=== PATIENT | male | born 1945 | race Caucasian/White ===

== ENCOUNTER 2019-01-08 08:22 | Emergency (ER) | payer MEDICARE ==
[2019-01-08 08:36] LABS: Glucose,Whole Blood 59 mg/dL (75-99)
--- NOTE | 2019-01-08 08:42 | ED ---
General Adult HPI - General Chief complaint: Weakness Stated complaint: sweating, tired Time Seen by Provider: 01/08/19 08:28 Source: patient Mode of arrival: wheelchair Limitations: no limitations - History of Present Illness Initial comments: Dictation was produced using [employer] dictation software. please excuse any grammatical, word or spelling errors. Chief Complaint: 73-year-old male with insulin-dependent diabetes, cardiac disease, dyslipidemia presents with diaphoresis and weakness. History of Present Illness: Patient is 73-year-old male past medical history of insulin-dependent diabetes presents with acute onset generalized weakness, diaphoresis. Patient takes 20 units of NovoLog in the morning and 40 units of long-acting insulin at night. Patient states he went to breakfast. Patient does not usually eat carbohydrates. Today he was at breakfast with his daughter and he had some breakfast potatoes. During his meal patient became clammy, diaphoretic and weak. Patient states that he has history of heart attack and was sweaty during that time. He is concerned initially of acute cardiac event. However he denies any chest pain or shortness of breath. Patient has otherwise been feeling well. He woke this morning feeling well. The ROS documented in this emergency department record has been reviewed and confirmed by me. Those systems with pertinent positive or negative responses h ave been documented in the HPI. All other systems are other negative and/or noncontributory. PHYSICAL EXAM: General Impression: Alert and oriented x3, diaphoretic, tremulous HEENT: Normocephalic atraumatic, extra-ocular movements intact, pupils equal and reactive to light bilaterally, mucous membranes moist. Cardiovascular: Heart regular rate and rhythm, S1&S2 audible, no murmurs, rubs or gallops Chest: Lungs clear to auscultation bilaterally, no rhonchi, no wheeze, no rales Abdomen: Bowel sounds present, abdomen soft, non-tender, non-distended, no organomegaly Musculoskeletal: Pulses present and equal in all extremities, no peripheral edema Motor: no focal deficits noted Neurological: CN II-XII grossly intact, no focal motor or sensory deficits noted Skin: Intact with no visualized rashes Psych: Normal affect and mood ED course: 73-year-old male presents with acute onset weakness and sweating. He is insulin-dependent diabetic. All signs upon arrival shows findings within acceptable limits. Blood glucose was checked with the level of 16. Patient given oral glucose with immediate improvement of symptoms. Laboratory evaluation was obtained. CBC unremarkable. Coag panel unremarkable. Metabolic panel is negative. Patient's blood sugar is 56. Mag is 1.9. Patient given oral glucose. Repeat blood sugar was obtained and found to be 61. Patient given IV dextrose. Sugar improved to 204. Patient's symptoms are clearly alleviated. Repeat blood sugar performed 1 hour later shows a level 170. Patient's symptoms likely secondary to insulin overdose versus poor glucose intake post insulin administration. Patient observed in emergency department. He is counseled on symptoms of hypoglycemia. Patient will be with the daughter. He does have a glucometer at home. He will check his blood sugars regularly that he will follow-up with his primary care physician for p ossible insulin regimen. EKG interpretation: Ventricular rate 75, normal sinus rhythm,. Interval 150, care is 140, QTc 493. No IA prolongation, no QTC prolongation, no ST or T-wave changes noted. No old EKG for comparison. Overall, this EKG is unremarkable - Related Data Home Medications Medication Instructions Recorded Confirmed Aspirin 325 mg PO DAILY 01/08/19 01/08/19 Atorvastatin [Lipitor] 40 mg PO HS 01/08/19 01/08/19 Carvedilol [Coreg] 25 mg PO BID 01/08/19 01/08/19 Clopidogrel [Plavix] 75 mg PO DAILY 01/08/19 01/08/19 Famotidine [Pepcid] 20 mg PO BID 01/08/19 01/08/19 Fluticasone Nasal [place] [Flonase 1 spray EA NOSTRIL BID 01/08/19 01/08/19 Nasal [place]] Furosemide [Lasix] 20 mg PO BID 01/08/19 01/08/19 Insulin Aspart [NovoLOG] See Protocol SQ AC-TID 01/08/19 01/08/19 Insulin Detemir (Levemir) [Levemir] 50 unit SQ BID 01/08/19 01/08/19 Lisinopril [Zestril] 20 mg PO DAILY 01/08/19 01/08/19 glyBURIDE [Diabeta] 5 mg PO BID 01/08/19 01/08/19 metFORMIN HCL 1,000 mg PO BID 01/08/19 01/08/19 Allergies Allergy/AdvReac Type Severity Reaction Status Date / Time No Known Allergies Allergy Verified 01/08/19 08:52 Review of Systems ROS Statement: Those systems with pertinent positive or pertinent negative responses have been documented in the HPI. ROS Other: All systems not noted in ROS Statement are negative. Past Medical History Past Medical History: Coronary Artery Disease (CAD), Chest Pain / Angina, Diabetes Mellitus, Hyperlipidemia, Hypertension, Myocardial Infarction ([place]) History of Any Multi-Drug Resistant Organisms: None Reported Past Surgical History: Coronary Bypass/CABG, Heart Catheterization With Stent Past Psychological History: No Psychological Hx Reported Smoking Status: Former smoker Past Alcohol Use History: Occasional Past Drug Use History: None Reported General Exam Limitations: no limitations Course Vital Signs 01/08/19 08:24 Temperature 98.0 F Pulse Rate 69 Respiratory 18 Rate Blood Pressure 168/76 O2 Sat by Pulse 96 Oximetry Medical Decision Making - Lab Data Result diagrams: 01/08/19 08:38 01/08/19 08:38 Lab Results 01/08/19 01/08/19 01/08/19 Range/Units 08:33 08:38 08:38 WBC 9.8 (3.8-10.6) k/uL RBC 5.20 (4.30-5.90) m/uL Hgb 14.0 (13.0-17.5) gm/dL Hct 47.2 (39.0-53.0) % MCV 90.7 (80.0-100.0) fL MCH 26.9 (25.0-35.0) pg MCHC 29.7 L (31.0-37.0) g/dL RDW 13.1 (11.5-15.5) % Plt Count 312 (150-450) k/uL Neutrophils % 53 % Lymphocytes % 30 % Monocytes % 10 % Eosinophils % 3 % Basophils % 1 % Neutrophils # 5.2 (1.3-7.7) k/uL Lymphocytes # 2.9 (1.0-4.8) k/uL Monocytes # 0.9 (0-1.0) k/uL Eosinophils # 0.3 (0-0.7) k/uL Basophils # 0.1 (0-0.2) k/uL PT (9.0-12.0) sec INR (<1.2) Sodium 144 (137-145) mmol/L Potassium 4.2 (3.5-5.1) mmol/L Chloride 105 (98-107) mmol/L Carbon Dioxide 29 (22-30) mmol/L Anion Gap 10 mmol/L BUN 28 H (9-20) mg/dL Creatinine 0.96 (0.66-1.25) mg/dL Est GFR (CKD-EPI)AfAm >90 (>60 ml/min/1.73 sqM) Est GFR (CKD-EPI)NonAf 78 (>60 ml/min/1.73 sqM) Glucose 56 L (74-99) mg/dL POC Glucose (mg/dL) 59 L (75-99) mg/dL POC Glu Armature Connector ID Kylee Sargent Calcium 10.1 (8.4-10.2) mg/dL Magnesium 1.9 (1.6-2.3) mg/dL 01/08/19 01/08/19 01/08/19 Range/Units 08:38 08:55 09:33 WBC (3.8-10.6) k/uL RBC (4.30-5.90) m/uL Hgb (13.0-17.5) gm/dL Hct (39.0-53.0) % MCV (80.0-100.0) fL MCH (25.0-35.0) pg MCHC (31.0-37.0) g/dL RDW (11.5-15.5) % Plt Count (150-450) k/uL Neutrophils % % Lymphocytes % % Monocytes % % Eosinophils % % Basophils % % Neutrophils # (1.3-7.7) k/uL Lymphocytes # (1.0-4.8) k/uL Monocytes # (0-1.0) k/uL Eosinophils # (0-0.7) k/uL Basophils # (0-0.2) k/uL PT 10.5 (9.0-12.0) sec INR 1.0 (<1.2) Sodium (137-145) mmol/L Potassium (3.5-5.1) mmol/L Chloride (98-107) mmol/L Carbon Dioxide (22-30) mmol/L Anion Gap mmol/L BUN (9-20) mg/dL Creatinine (0.66-1.25) mg/dL Est GFR (CKD-EPI)AfAm (>60 ml/min/1.73 sqM) Est GFR (CKD-EPI)NonAf (>60 ml/min/1.73 sqM) Glucose (74-99) mg/dL POC Glucose (mg/dL) 61 L 204 H (75-99) mg/dL POC Glu Armature Connector ID James Ingrid [place]italok Ingrid Calcium (8.4-10.2) mg/dL Magnesium (1.6-2.3) mg/dL 01/08/19 Range/Units 10:15 WBC (3.8-10.6) k/uL RBC (4.30-5.90) m/uL Hgb (13.0-17.5) gm/dL Hct (39.0-53.0) % MCV (80.0-100.0) fL MCH (25.0-35.0) pg MCHC (31.0-37.0) g/dL RDW (11.5-15.5) % Plt Count (150-450) k/uL Neutrophils % % Lymphocytes % % Monocytes % % Eosinophils % % Basophils % % Neutrophils # (1.3-7.7) k/uL Lymphocytes # (1.0-4.8) k/uL Monocytes # (0-1.0) k/uL Eosinophils # (0-0.7) k/uL Basophils # (0-0.2) k/uL PT (9.0-12.0) sec INR (<1.2) Sodium (137-145) mmol/L Potassium (3.5-5.1) mmol/L Chloride (98-107) mmol/L Carbon Dioxide (22-30) mmol/L Anion Gap mmol/L BUN (9-20) mg/dL Creatinine (0.66-1.25) mg/dL Est GFR (CKD-EPI)AfAm (>60 ml/min/1.73 sqM) Est GFR (CKD-EPI)NonAf (>60 ml/min/1.73 sqM) Glucose (74-99) mg/dL POC Glucose (mg/dL) 170 H (75-99) mg/dL POC Glu Armature Connector ID Whitalok Ingrid Calcium (8.4-10.2) mg/dL Magnesium (1.6-2.3) mg/dL Disposition Clinical Impression: Hypoglycemia Disposition: HOME SELF-CARE Condition: Good Instructions (If sedation given, give patient instructions): Hypoglycemia in a Person with Diabetes (ED) Is patient prescribed a controlled substance at d/c from ED?: No Referrals: Fabiano Dhillon MD [Primary Care Provider] - 1-2 days Time of Disposition: 10:32
[2019-01-08 08:53] LABS: Basophils # (A) 0.1 k/uL (0-0.2); Basophils % (A) 1 %; Eosinophils # (A) 0.3 k/uL (0-0.7); Eosinophils % (A) 3 %; HCT 47.2 % (39.0-53.0); Lymphocytes # (A) 2.9 k/uL (1.0-4.8); Lymphocytes % (A) 30 %; MCH 26.9 pg (25.0-35.0); MCHC 29.7 g/dL (31.0-37.0); MCV 90.7 fL (80.0-100.0); Mean Platelet Volume 7.5; Monocytes # (A) 0.9 k/uL (0-1.0); Monocytes % (A) 10 %; Neutrophils # (A) 5.2 k/uL (1.3-7.7); Neutrophils % (A) 53 %; Platelet Count 312 k/uL (150-450); RDW 13.1 % (11.5-15.5); WBC 9.8 k/uL (3.8-10.6)
[2019-01-08 09:00] LABS: Prothrombin Time 10.5 sec (9.0-12.0)
[2019-01-08] MEDS ORDERED: DEXTROSE 50% SYRINGE 50 ML IVP STA (09:02)
[2019-01-08 09:03] LABS: African American GFR (CKD) >90 (>60 ml/min/1.73 sqM); Anion Gap 10 mmol/L; Blood Urea Nitrogen 28 mg/dL (9-20); Calcium 10.1 mg/dL (8.4-10.2); Carbon Dioxide 29 mmol/L (22-30); Chloride 105 mmol/L (98-107); Glucose 56 mg/dL (74-99); Magnesium 1.9 mg/dL (1.6-2.3); Potassium 4.2 mmol/L (3.5-5.1); Sodium 144 mmol/L (137-145)
[2019-01-08 09:06] LABS: Glucose,Whole Blood 61 mg/dL (75-99)
[2019-01-08 09:36] LABS: Glucose,Whole Blood 204 mg/dL (75-99)
[2019-01-08 10:17] LABS: Glucose,Whole Blood 170 mg/dL (75-99)
[2019-01-08 10:40] VITALS: BP 113/82; PULSE 82; RESP 17; TEMP 97.9
== END 2019-01-08 10:40 | disposition home or self-care (01) ==
LOC: EC 08:22
DX: E11.649 Type 2 diabetes mellitus with hypoglycemia without coma (principal); I25.119 Atherosclerotic heart disease of native coronary artery with unspecified angina pectoris; E78.5 Hyperlipidemia, unspecified; I10 Essential (primary) hypertension; I25.2 Old myocardial infarction; Z87.891 Personal history of nicotine dependence; Z79.02 Long term (current) use of antithrombotics/antiplatelets; Z79.4 Long term (current) use of insulin; Z79.51 Long term (current) use of inhaled steroids; Z79.82 Long term (current) use of aspirin; Z79.899 Other long term (current) drug therapy; Z95.1 Presence of aortocoronary bypass graft; Z95.5 Presence of coronary angioplasty implant and graft
CPT/HCPCS: 36415; 80048; 83735; 85025; 85610; 93005; 96374; 99285

== ENCOUNTER 2024-04-20 05:49 | Observation (INO) | payer MEDICARE ==
--- NOTE | 2024-04-19 20:40 | HP ---
HISTORY AND PHYSICAL DATE OF SCHEDULED SURGERY: 04/20/2024. HISTORY OF PRESENT ILLNESS: Alber Kurtz is a 78-year-old gentleman seen with symptomatic left knee osteoarthritis. After treatment options were discussed, he elected to proceed with left total knee arthroplasty. Consent regarding the procedure was obtained. His primary care doctor is Dr. Dhillon. He received medical cardiac clearance by Dr. Vides. PAST MEDICAL HISTORY: Cardiovascular disease, hypertension, hyperlipidemia, [id number] diabetes. PAST SURGICAL HISTORY: Noncontributory. DAILY MEDICATIONS: 1. Aspirin. 2. Rosuvastatin. 3. Insulin. 4. Metoprolol. ALLERGIES: None. SOCIAL HISTORY: He denies tobacco use. PHYSICAL EVALUATION OF THE LEFT KNEE: His range of motion is -3 to 100 degrees. Tenderness along the medial and lateral joint lines. Crepitance along all 3 compartments. Ligaments stable. Hip rotation is without pain. His distal neurovascular exam is intact. IMAGING: Left knee radiographs revealed severe osteoarthritic changes. IMPRESSION: 1. Left knee osteoarthritis. 2. Hypertension. 3. Hyperlipidemia. 4. Insulin-dependent diabetes. PLAN: Left total knee arthroplasty. MMODL / IJN: [id number] /
[~2024-04-20 05:49] MED LIST: TRANEXAMIC 1,000 MG/100ML-NACL 1,000 MG in SALINE 1 100ML.BAG IVPB PRN
[2024-04-20 06:48] LABS: Glucose,Whole Blood 174 mg/dL (70-110)
[2024-04-20] MEDS: ACETAMINOPHEN TAB 500 MG TAB PO PRN (06:58)
[2024-04-20] MEDS: ONDANSETRON 4 MG/2 ML VIAL IVP ONE (06:58)
[2024-04-20] MEDS: MELOXICAM 7.5 MG TAB PO PRN (06:58)
[2024-04-20] MEDS: LACTATED RINGERS 1,000 ML IV SCH (06:59)
[2024-04-20] MEDS: IV FLUID CONTINUATION 1,000 ML IV ONE ×2 (07:00→09:30)
[2024-04-20 07:03] LABS: Partial Thromboplastin Time 23.6 sec (22.0-30.0)
[2024-04-20 07:09] LABS: Anisocytosis Moderate; HCT 41.9 % (39.0-53.0); HGB 13.2 gm/dL (13.0-17.5); Hypochromasia Slight; MCH 28.2 pg (25.0-35.0); MCHC 31.4 g/dL (31.0-37.0); MCV 89.6 fL (80.0-100.0); Mean Platelet Volume 8.8; Platelet Count 187 k/uL (150-450); RBC 4.68 m/uL (4.30-5.90); RDW 20.3 % (11.5-15.5); WBC 5.7 k/uL (3.8-10.6)
[2024-04-20] MEDS: MIDAZOLAM 2 MG/2 ML VIAL IV STA (07:10)
--- NOTE | 2024-04-20 07:26 | P.ANPRN ---
Procedure Note - Anesthesia - Nerve Block Performed Left Adductor Canal Infusion Time Out Performed: Yes Date of Procedure: 04/20/24 Procedure Start Time: :10 Procedure Stop Time: :16 Location of Patient: PreOp Indication: Acute Post-Operative Pain, Dx/Pain Location, Requested by Surgeon Sedation Type: Sedate with meaningful contact maintained Preparation: Sterile Prep Position: Supine Catheter: Indwelling Needle Types: Pajunk Needle Gauge: 21 Ultrasound used to visualize needle placement: Yes Ultrasound used to observe medication spread: Yes Injectate: 0.5% Ropivacaine (see comment for volume) (20cc) Blood Aspirated: No Pain Paresthesia on Injection Noted: No Resistance on Injection: Normal Image Stored and Saved: Yes Events: Uneventful and Well Tolerated
--- NOTE | 2024-04-20 07:27 | P.ANPRN ---
Procedure Note - Anesthesia - Nerve Block Performed Left Sona Single Date of Procedure: 04/20/24 Procedure Start Time: 07:17 Procedure Stop Time: :22 Location of Patient: PreOp Indication: Acute Post-Operative Pain, Dx/Pain Location, Requested by Surgeon Preparation: Sterile Prep Position: Supine Catheter: None Needle Types: Pajunk Needle Gauge: 21 Ultrasound used to visualize needle placement: Yes Ultrasound used to observe medication spread: Yes Injectate: 0.5% Ropivacaine (see comment for volume) (15cc) Blood Aspirated: No Pain Paresthesia on Injection Noted: No Resistance on Injection: Normal Image Stored and Saved: Yes Events: Uneventful and Well Tolerated
[2024-04-20] MEDS ORDERED: ROPIVACAINE 5 MG/ML 30 ML VIAL ONE (07:30)
[2024-04-20] MEDS ORDERED: PHENYLEPHRINE-0.9% NACL SYG 1,000 MCG/10 ML SYRINGE ONE (07:30)
[2024-04-20] MEDS ORDERED: TRANEXAMIC 1,000 MG/100ML-NACL PREMIX BAG ONE (07:30)
[2024-04-20] MEDS ORDERED: fentaNYL (PF) 50 MCG/ML 2 ML AMP ONE (07:30)
[2024-04-20] MEDS ORDERED: PROPOFOL 10 MG/ML 20 ML VIAL IV ONE (07:30)
[2024-04-20 07:41] LABS: Anisocytosis (M) Present; Eosinophils # (M) 0.23 k/uL (0-0.7); Monocytes # (M) 1.08 k/uL (0-1.0); Neutrophils # (M) 2.91 k/uL (1.3-7.7); Neutrophils % (M) 51 %; Nucleated Red Blood Cells 0 /100 WBC (0-0); Poikilocytosis (M) Present; Total Cells Counted 200
[2024-04-20 07:55] LABS: African American GFR (CKD) >90 (>60 ml/min/1.73 sqM); Anion Gap 7 mmol/L; Blood Urea Nitrogen 33 mg/dL (9-20); Calcium 9.1 mg/dL (8.4-10.2); Carbon Dioxide 30 mmol/L (22-30); Chloride 101 mmol/L (98-107); Glucose 155 mg/dL (74-99); Non-African American GFR(CKD) 83 (>60 ml/min/1.73 sqM); Potassium 4.2 mmol/L (3.5-5.1); Sodium 138 mmol/L (137-145)
[2024-04-20] MEDS: ceFAZolin 1,000 MG in SODIUM CHLORIDE 0.9% 1,000 ML IRRIGATION ONE (07:56)
--- NOTE | 2024-04-20 09:15 | P.OP ---
Date of Procedure: 04/20/24 Preoperative Diagnosis: Left knee osteoarthritis Postoperative Diagnosis: Left knee osteoarthritis Procedure(s) Performed: Left total knee arthroplasty Implants: 1. DePuy attune size 6 left cruciate retaining cemented femur 2. DePuy attune size 6 fixed-bearing cemented tibial baseplate 3. DePuy attune size 6 fixed-bearing cruciate retaining 6 mm polyethylene tibial insert 4. DePuy attune 38 mm all polyethylene cemented patella Anesthesia: regional (Adductor canal catheter), spinal Surgeon: Sky Rausch [employer] Teacher #1: Matthew Johnson Estimated Blood Loss (ml): 40 Pathology: none sent Condition: stable Disposition: PACU Indications for Procedure: 78-year-old patient seen with symptomatic left knee osteoarthritis. After treatment options were discussed, he elected to proceed with left total knee arthroplasty. Operative Findings: See description of procedure Description of Procedure: Patient was taken to the operative suite after having an adductor canal catheter placed by the department of anesthesia. Patient underwent a spinal anesthetic by the department of anesthesia. Patient was given preoperative IV intake antibiotics and TXA. A well-padded tourniquet was placed about the left lower extremity. The lower extremity was then prepped and draped in the normal sterile orthopedic fashion. The extremity was elevated, a tourniquet was insufflated to 300. A standard anterior incision was made sharply through skin. Dissection was taken down through the subcutaneous soft tissues down to the extensor mechanism. A medial arthrotomy was performed, patella was everted and knee was flexed. There was advanced osteoarthritis noted. I introduced my distal intramedullary femoral drill. I then introduced the distal femoral cutting jig. Fredy KNUTSON secured the cutting jig with 2 pins. I held retractors in position while Fredy KNUTSON performed the distal femoral resection through the guide area we now removed her distal femoral cutting guide. We now placed our 4-in-1 femoral cutting block and positioned and it was secured with 2 pins by Fredy KNUTSON while I held the block in position. The distal femoral finishing was now completed. A proximal tibial cutting guide was positioned. I held the guide in the appropriate position with both hands well Fredy KNUTSON inserted stabilizing pins into the guide. Proximal tibial cut wa s made. We now placed a trial femoral component into position, along with an appropriate size tibial tray and insert. We now took the knee through range of motion and had full extension good flexion and good overall soft tissue balance noted. The patella was everted and stabilized with 2 towel clips held by Fredy KNUTSON while I performed a flush with patellar quad tendon utilizing a fresh sawblade. We templated the patella, appropriate drill holes were made. An appropriate trial patella was positioned, knee was taken through full range of motion with the patella tracking very nicely. The trial patella was removed. Drill holes were made through the femoral component. All trial components were removed after marking off the appropriate rotation of the tibia. Retractors were now positioned along the proximal tibia. An appropriate keel punch was made with the appropriate size tibial guide by myself on Fredy KNUTSON assisted by holding retractors. At this point appropriate size implants were chosen and opened. The joint was irrigated copiously with pulse lavage mechanical irrigation. The wound was irrigated with pulse lavage mechanical irrigation. We mixed antibiotic methylmethacrylate. We placed the knee into flexion. We placed multiple retractors assisted by Fredy KNUTSON to expose the proximal tibia. Once the methyl methacrylate was ready, the tibial component was cemented into place removing any excess methylmethacrylate form by both myself and Fredy KNUTSON. The femoral component was cemented into place removing the removing any excess methylmethacrylate performed by both myself and Fredy KNUTSON. We then inserted the appropriate size polyethylene tibial insert. We made sure that it was locked into position. We took the knee into full extension, and then back in a flexion making sure we had removed any excess methylmethacrylate. The patellar component was then cemented down and secured with clamp. Excess methylmethacrylate removed. We kept the knee in full extension, patellar clamp in position until methylmethacrylate had hardened. Once it had hardened the patellar clamp was removed. The knee was taken through full range of motion. The patella tracked nicely. There was good soft tissue balancing. The tourniquet was now released. Additional hemostasis was achieved via electrocautery. A second gram of TXA was given. The wound again was irrigated with pulse lavage mechanical irrigation. The extensor mechanism was repaired with Ethibond suture. We checked the repair with range of motion and it was stable. The subcutaneous soft tissues were repaired with Vicryl in layers. The skin was approximated with pernio/Dermabond. Sterile dressings were applied followed by loose web roll and Eliceo bandage. The patient was trans ferred to a bed, and taken to recovery in stable and satisfactory condition. Fredy KNUTSON assisted with this complex procedure.
[2024-04-20] MEDS ORDERED: NALOXONE 0.4 MG/ML 1 ML VIAL IV PRN (09:16)
[2024-04-20] MEDS ORDERED: ONDANSETRON 4 MG/2 ML VIAL IVP PRN (09:16)
[2024-04-20] MEDS ORDERED: HYDROmorphone 0.5 MG/0.5 ML SYRINGE IVP PRN (09:16)
[2024-04-20] MEDS: ROPIVACAINE 1,100 MG, SODIUM CHLORIDE 0.9% 500 ML 330 ML, EMPTY PAIN BALL 1 EACH MISCELLANE PRN (10:07)
[2024-04-20] MEDS: HYDROmorphone 0.5 MG/0.5 ML SYRINGE IVP PRN ×2 (11:21→17:20)
--- NOTE | 2024-04-20 11:30 | XR ---
EXAMINATION TYPE: XR knee limited LT DATE OF EXAM: 04/20/2024 10:58 AM CLINICAL INDICATION: Male, 78 years old with history of Evaluation for Postop abnormality and alignme nt; COMPARISON: None. TECHNIQUE: XR knee limited LT; examined in Frontal, lateral projections. FINDINGS: Status post total knee arthroplasty changes with hardware in appropriate alignment and in tact. No evidence of fracture. Subcutaneous lucencies and lucencies within the joint consistent with surgical changes. Atherosclerosis of the arterial vasculature. Surgical clips along the medial thigh. IMPRESSION: Status post total knee arthroplasty changes with hardware intact and appropriate alignment. No fractu res identified. [facility], , 04/20/2024 11:28 AM
[2024-04-20 13:49] LABS: Glucose,Whole Blood 118 mg/dL (70-110)
[2024-04-20] MEDS: SODIUM CHLORIDE 0.9% 1,000 ML IV SCH (15:55)
[2024-04-20] MEDS ORDERED: DEXTROSE 50% SYRINGE 50 ML IVP PRN ×2 (16:07)
--- NOTE | 2024-04-20 18:04 | P.CONS ---
History of Present Illness - Reason for Consult Consult date: 04/20/24 Medical Management Requesting physician: Sky Rausch - History of Present Illness History of Presenting Illness: Patient is a very pleasant 78-year-old male with a past medical history of CAD status post CABG x 4 followed by stenting x 2, nonischemic cardiomyopathy status post AICD placement, aortic valve disease, hypertension, hyperlipidemia, pul monary hypertension, chronic atrial fibrillation on anticoagulation with Xarelto, insulin-dependent diabetes mellitus, iron deficiency anemia, and GERD. He is currently admitted to orthopedic surgery team status post elective left total knee arthroplasty secondary to severe left knee osteoarthritis. We were consulted for medical management throughout hospitalization. Patient seen and fully evaluated in room 459. He was resting comfortably in bed visiting with family at bedside. Patient reports currently his postoperative pain is controlled and states pain is "minimal". Patient denies having any postoperative nausea or vomiting, headache, lightheadedness, dizziness, chest pain, palpitations, shortness of breath, or any other complaints at this time. Patient reports he has not yet urinated in postoperative period, but has urinal at bedside and has been trying. Review of systems: Pertinent positives and negatives as discussed in HPI, a complete review of systems was performed and all other systems are negative. Physical exam: Vital signs reviewed and stable. General: Nontoxic, no distress and appears stated age. Derm: Skin warm and dry, normal coloration for ethnicity. Head: Atraumatic, normocephalic and symmetric. Eyes: EOM's intact, no lid lag, and anicteric sclera Mouth: no lip lesions, mucus membranes moist Cardiovascular: regular rate and rhythm with normal S1S2, systolic murmur, positive posterior tibial pulses bilaterally, and cap refill < 2 seconds. Pacemaker left anterior chest. Lungs: Respirations even, regular, and unlabored on room air. Lungs CTA bilaterally, no rhonchi, no rales, no wheezing, and no accessory muscle usage. Abdominal: soft, nontender to palpation, no guarding, no appreciable organomegaly Ext: Movement and sensation intact. No gross muscle atrophy, no edema, no contractures. Postoperative dressing/Eliceo wrap with ice pack in place to left kn ee. Neuro: Speech clear, face symmetrical and CN II-XII grossly intact with no noted focal neuro deficits Psych: Alert and oriented to person, place, time, and situation. Appropriate and pleasant affect. Assessment and Plan of Care: Status post left total knee arthroplasty Management per primary admitting orthopedic surgery team including DVT prophylaxis, pain management, wound/dressing management, weightbearing, and PT/OT. Currently on DVT prophylaxis with aspirin 325 mg twice daily, recommend restarting Xarelto once cleared by orthopedic surgery to resume. Postoperative urinary retention Order placed for bladder scan to monitor for urinary retention/postvoid residuals. Nursing to straight cath if needed for urinary retention greater harrison n 350 cc. If no improvement or patient requires straight catheterization may consider starting patient on Flomax 0.4 mg daily tomorrow morning. Diabetes mellitus with hyperglycemia Blood glucose 155. Patient to resume Levemir 50 units twice daily and placed on glycemic protocol with NovoLog sliding scale. CAD status post CABG x 4 Nonischemic cardiomyopathy status post AICD placement Aortic valve disease Hypertension Hyperlipidemia Pulmonary hypertension Chronic atrial fibrillation Xarelto held pending clearance by orthopedic surgery to resume. Patient to otherwise continue daily medication regimen with atorvastatin 40 mg daily, Bumex 2 mg daily, metoprolol 25 mg daily, and Entresto 24-26 mg tablet daily. Recommend resuming Xarelto once cleared by orthopedic surgery to resume. Recommend telemetry monitoring during postoperative period. Data and imaging reviewed: Preoperative labs reviewed. CBC unremarkable showing WBC count 5.7, hemoglobin 13.2, platelet count of 187. BMP showing mild prerenal azotemia with BUN of 33 otherwise normal findings. Blood glucose was 155. Vital signs reviewed. Blood pressure 143/80, heart rate 69, respiratory rate 17, temp 97.5 F, and SpO2 of 95% on room air. Thank you for allowing us to participate in the care of this pleasant patient. Do not hesitate to contact us with questions. Someone can be reached from the [facility] hospitalist group all hours of the day at [phone] or via [employer]. Patient was seen independently by Nurse Practitioner. This document was prepared using [employer] dictation software. Please allow for errors in digitizer operator while rare they do occur. Akbar Wyatt NP rendered care for this patient independently, reviewed the findings and plan as documented in the note above. I did not physically speak with or examine the patient on this date. Past Medical History Past Medical History: Atrial Fibrillation, Coronary Artery Disease (CAD), Chest Pain / Angina, Heart Failure, Diabetes Mellitus, Hearing Disorder / Deafness, Hyperlipidemia, Hypertension, Myocardial Infarction (CT), Osteoarthritis (OA) Additional Past Medical History / Comment(s): Type II DM, cardiomyopathy, paroxysmal atrial fibrillation, anemia, hard of hearing, colon cancer 12/26 - bowel resection Last Myocardial Infarction Date:: 2007 History of Any Multi-Drug Resistant Organisms: None Reported Past Surgical History: Coronary Bypass/CABG, Heart Catheterization With Stent, Pacemaker Additional Past Surgical History / Comment(s): CABG x 4 vessels, colon resection 12/26 in [place] Additional Past Anesthesia/Blood Transfusion Reaction / Comm: Pt. states he was itchy for 2 mos. after colon resection in 12/2023. Date of Last Stent Placement:: 2007 Type of Cardiac Device: Biventricular Pacemaker, AICD Device Placement Date:: 10/2022 Smoking Status: Former smoker - Past Family History Daughter(s) Family Medical History: Cancer Additional Family Medical History / Comment(s): breast cancer Mother Family Medical History: Cancer Additional Family Medical History / Comment(s): breast Brother(s) Family Medical History: Coronary Artery Disease (CAD) Additional Family Medical History / Comment(s): CABG Medications and Allergies Home Medications Medication Instructions Recorded Confirmed Type Insulin Aspart [NovoLOG] See Protocol SQ AC-TID 01/08/19 04/20/24 History Ascorbic Acid [Vitamin C] 500 mg PO DAILY 04/14/24 04/20/24 History Aspirin [Adult Low Dose Aspirin EC] 81 mg PO DAILY 04/14/24 04/20/24 History Bumetanide [BUMEX] 2 mg PO QAM 04/14/24 04/20/24 History Cbd Oil 1 drop SUBLINGUAL BID 04/14/24 04/20/24 History Docusate [Colace] 100 mg PO QAM 04/14/24 04/20/24 History Dulaglutide [Trulicity] 0.75 mg SQ WEEKLY 04/14/24 04/20/24 History Empagliflozin [Jardiance] 10 mg PO QAM 04/14/24 04/20/24 History Ferrous Sulfate [Feosol] 325 mg PO BID 04/14/24 04/20/24 History Fluticasone Propionate [Flonase 1 spray EA NOSTRIL BID 04/14/24 04/20/24 History Allergy Relief] Insulin Glargine,Hum.rec.anlog 50 units SQ BID 04/14/24 04/20/24 History [Lantus Solostar Pen] Metoprolol Succinate (ER) [Toprol 25 mg PO QAM 04/14/24 04/20/24 History XL] Pantoprazole [Protonix] 40 mg PO QAM 04/14/24 04/20/24 History Rivaroxaban [Xarelto] 20 mg PO DAILY 04/14/24 04/20/24 History Rosuvastatin [Crestor] 20 mg PO QAM 04/14/24 04/20/24 History Sacubitril/Valsartan [Entresto 24 1 tab PO QAM 04/14/24 04/20/24 History mg-26 mg Tablet] Thiamine [Vitamin B-1] 100 mg PO QAM 04/14/24 04/20/24 History Allergies Allergy/AdvReac Type Severity Reaction Status Date / Time No Known Allergies Allergy Verified 04/20/24 06:27 Physical Exam Vitals: Vital Signs Temp Pulse Resp BP Pulse Ox 04/20/24 15:40 97.5 F L 69 17 143/80 95 04/20/24 14:00 70 16 143/80 96 04/20/24 13:00 70 16 137/78 96 04/20/24 12:30 69 16 139/82 93 L 04/20/24 12:00 70 16 138/71 99 04/20/24 11:30 74 16 125/60 99 04/20/24 11:00 72 16 137/78 99 04/20/24 10:30 68 16 129/72 99 04/20/24 10:15 69 16 127/69 99 04/20/24 10:00 73 16 145/78 99 04/20/24 09:45 69 16 141/80 99 04/20/24 09:30 69 16 145/80 97 04/20/24 09:24 97.4 F L 77 16 118/81 96 04/20/24 07:25 69 16 117/67 99 04/20/24 06:20 97.0 F L 88 18 163/79 98 Intake and Output 04/20/24 04/20/24 04/20/24 06:59 14:59 22:59 Intake Total 2050 Output Total 40 Balance 2010 Intake: IV 2050 Output: Estimated Blood Loss 40 Other: Weight 86.4 kg Results CBC & Chem 7: 04/21/24 05:31 04/21/24 05:31 Labs: Abnormal Lab Results - Last 24 Hours (Table) 04/20/24 04/20/24 04/20/24 Range/Units 06:41 06:50 07:30 RDW 20.3 H (11.5-15.5) % Monocytes # (Manual) 1.08 H (0-1.0) k/uL BUN 33 H (9-20) mg/dL Glucose 155 H (74-99) mg/dL POC Glucose (mg/dL) 174 H (70-110) mg/dL 04/20/24 Range/Units 13:46 RDW (11.5-15.5) % Monocytes # (Manual) (0-1.0) k/uL BUN (9-20) mg/dL Glucose (74-99) mg/dL POC Glucose (mg/dL) 118 H (70-110) mg/dL
[2024-04-20] MEDS: INSULIN ASPART (NovoLOG) 100 UNIT/ML VIAL SQ SCH (19:57)
[2024-04-20] MEDS: FERROUS SULFATE 325 MG TAB PO SCH (20:50)
[2024-04-20] MEDS: HYDROcodone/APAP 5-325MG 1 EACH TAB PO PRN (20:50)
[2024-04-20] MEDS: SENNOSIDES-DOCUSATE SODIUM 1 EACH TAB PO SCH (20:50)
[2024-04-20] MEDS: ASPIRIN 325 MG TAB PO SCH (20:50)
[2024-04-20 20:52] LABS: Glucose,Whole Blood 148 mg/dL (70-110)
[2024-04-20] MEDS: FLUTICASONE NASAL 50MCG/SPRAY 16GM BTL EA NOSTRIL SCH (21:25)
[2024-04-20] MEDS: INSULIN DETEMIR (LEVEMIR) 100 UNIT/ML SYR SQ SCH (21:25)
[2024-04-21] MEDS: HYDROmorphone 0.5 MG/0.5 ML SYRINGE IVP PRN (01:33)
[2024-04-21] MEDS: HYDROcodone/APAP 5-325MG 1 EACH TAB PO PRN (05:25)
[2024-04-21 06:15] LABS: Glucose,Whole Blood 82 mg/dL (70-110)
--- NOTE | 2024-04-21 06:28 | P.PN ---
Progress Note - Text Progress Note Date: 04/21/24 POD 1 left TKA s/p abductor canal catheter. He's been able to stand. He is using a urinal for urination. Pain is well-controlled. He is using as needed medications postoperative. please call the anesthesiologist any questions
[2024-04-21] MEDS: ATORVASTATIN 40 MG TAB PO SCH (08:37)
[2024-04-21] MEDS: THIAMINE 100 MG TAB PO SCH (08:37)
[2024-04-21] MEDS: ASCORBIC ACID 500 MG TAB PO SCH (08:37)
[2024-04-21] MEDS: PANTOPRAZOLE 40 MG TABLET PO SCH (08:37)
[2024-04-21] MEDS: METOPROLOL SUCCINATE (ER) 25 MG TAB.ER.24H PO SCH (08:37)
[2024-04-21] MEDS: SACUBITRIL/VALSARTAN 24 MG-26 MG TABLET PO SCH (08:37)
[2024-04-21] MEDS: BUMETANIDE 1 MG TAB PO SCH (08:38)
[2024-04-21] MEDS: DOCUSATE 100 MG CAP PO SCH (08:40)
[2024-04-21 08:49] LABS: HCT 38.1 % (39.6-50.0); HGB 11.6 g/dL (13.0-17.0); MCHC 30.4 g/dL (32.0-37.0); MCV 88.6 FL (80.0-97.0); Mean Platelet Volume 10.6 FL (9.5-12.2); NRBC Per 100 WBC 0 X 10*3/uL (0.00-0.01); Platelet Count 166 X 10*3/uL (140-440); RDW 22.3 % (11.5-14.5); WBC 8.76 X 10*3/uL (4.50-10.00)
[2024-04-21 08:51] LABS: BUN/Creat Ratio 23.11 Ratio (12.00-20.00); Blood Urea Nitrogen 20.8 mg/dL (9.0-27.0); Calcium 9.3 mg/dL (8.7-10.3); Carbon Dioxide 26.1 mmol/L (21.6-31.8); Chloride 104 mmol/L (96-109); Glucose 79 mg/dL (70-110); Magnesium 1.8 mg/dL (1.5-2.4); Potassium 4.4 mmol/L (3.5-5.5); Sodium 139 mmol/L (135-145)
[2024-04-21 09:32] LABS: Basophils # (A) 0.03 X 10*3/uL (0.00-0.10); Basophils % (A) 0.3 %; Eosinophils # (A) 0.05 X 10*3/uL (0.04-0.35); Eosinophils % (A) 0.6 %; Lymphocytes # (A) 0.94 X 10*3/uL (0.90-5.00); Lymphocytes % (A) 10.7 %; Macrocytosis (M) 2+; Monocytes # (A) 1.84 X 10*3/uL (0.20-1.00); Neutrophils # (A) 5.88 X 10*3/uL (1.80-7.70); Neutrophils % (A) 67.2 %
[2024-04-21 11:44] LABS: Glucose,Whole Blood 120 mg/dL (70-110)
[2024-04-21] MEDS: MULTIVITAMINS, THERA 1 EACH TAB PO SCH (12:46)
--- NOTE | 2024-04-21 13:13 | P.PN ---
Subjective Progress Note Date: 04/21/24 Principal diagnosis: Status post left total knee arthroplasty patient was evaluated today at bedside, he is resting in his hospital chair, his daughter is present at bedside. Patient is doing relatively well at this time. He did have a slight difficulty initially when ambulating with therapy, this did seem to improve throughout the session. They are recommending 1 additi onal night to work on pain control and step training. He has no headaches, lightheadedness, chest pain or shortness of breath at this time. Objective - Vital Signs Vital signs: Vital Signs Temp 97.7 F 04/21/24 07:43 Pulse 74 04/21/24 07:43 Resp 16 04/21/24 07:43 BP 159/72 04/21/24 07:43 Pulse Ox 94 L 04/21/24 07:43 FiO2 Intake & Output 04/20/24 04/21/24 04/21/24 18:59 06:59 18:59 Intake Total 2050 Output Total 640 1200 900 Balance 1411 -1200 -900 Weight 86.4 kg Intake: IV 2050 Output: Urine 600 1200 900 Estimated Blood Loss 40 - Exam Left lower extremity: Incision is clean, dry, and intact. The foam dressing is in good condition. There is minimal soft tissue swelling and ecchymosis surrounding the medial and lateral aspects of the incision. Calf is soft, no tenderness with palpation. Plantar flexion, dorsiflexion, EHL, FHL are intact. Sensory exam to light touch throughout the extremity is intact, dorsal pedis pulses 2+. - Labs CBC & Chem 7: 04/21/24 05:31 04/21/24 05:31 Labs: Abnormal Lab Results - Last 24 Hours (Table) 04/20/24 04/20/24 04/21/24 Range/Units 13:46 20:51 05:31 RBC 4.30 L (4.40-5.60) X 10*6/uL Hgb 11.6 L (13.0-17.0) g/dL Hct 38.1 L (39.6-50.0) % MCHC 30.4 L (32.0-37.0) g/dL RDW 22.3 H (11.5-14.5) % Monocytes # 1.84 H (0.20-1.00) X 10*3/uL Macrocytosis (manual) 2+ A BUN/Creatinine Ratio (12.00-20.00) Ratio POC Glucose (mg/dL) 118 H 148 H (70-110) mg/dL 04/21/24 04/21/24 Range/Units 05:31 11:44 RBC (4.40-5.60) X 10*6/uL Hgb (13.0-17.0) g/dL Hct (39.6-50.0) % MCHC (32.0-37.0) g/dL RDW (11.5-14.5) % Monocytes # (0.20-1.00) X 10*3/uL Macrocytosis (manual) BUN/Creatinine Ratio 23.11 H (12.00-20.00) Ratio POC Glucose (mg/dL) 120 H (70-110) mg/dL Assessment and Plan Assessment: postoperative day #1 status post left total knee arthroplasty Plan: pain control, continue with current medications DVT prophylaxis, continue with current medications wound care instructions discussed, this to include the use of the On-Q pain catheter, showering instructions along with icing and elevating encourage incentive spirometer continue PT/OT medical recommendations appreciated discharge planning: I would like to keep patient in hospital for additional night for pain control and to work again with physical therapy tomorrow. Plan for discharge home with home health care on 04/21/2024 Time with Patient: Less than 30
--- NOTE | 2024-04-21 13:51 | P.PN ---
Subjective Progress Note Date: 04/21/24 History of Presenting Illness: Patient is a very pleasant 78-year-old male with a past medical history of CAD status post CABG x 4 followed by stenting x 2, nonischemic cardiomyopathy status post AICD placement, aortic valve disease, hypertension, hyperlipidemia, pulmonary hypertension, chronic atrial fibrillation on anticoagulation with Xarelto, insulin-dependent diabetes mellitus, iron deficiency anemia, and GERD. He is currently admitted to orthopedic surgery team status post elective left total knee arthroplasty secondary to severe left knee osteoarthritis. We were consulted for medical management throughout hospitalization. Patient seen and fully evaluated in room 459. He was resting comfortably in bed visiting with family at bedside. Patient reports currently his postoperative pain is controlled and states pain is "minimal". Patient denies having any postoperative nausea or vomiting, headache, lightheadedness, dizziness, chest pain, palpitations, shortness of breath, or any other complaints at this time. Patient reports he has not yet urinated in postoperative period, but has urinal at bedside and has been trying. Review of systems: Pertinent positives and negatives as discussed in HPI, a complete review of systems was performed and all other systems are negative. Physical exam: Vital signs reviewed and stable. General: Nontoxic, no distress and appears stated age. Derm: Skin warm and dry, normal coloration for ethnicity. Head: Atraumatic, normocephalic and symmetric. Eyes: EOM's intact, no lid lag, and anicteric sclera Mouth: no lip lesions, mucus membranes moist Cardiovascular: regular rate and rhythm with normal S1S2, systolic murmur, positive posterior tibial pulses bilaterally, and cap refill < 2 seconds. Pacemaker left anterior chest. Lungs: Respirations even, regular, and unlabored on room air. Lungs CTA bilaterally, no rhonchi, no rales, no wheezing, and no accessory muscle usage. Abdominal: soft, nontender to palpation, no guarding, no appreciable organomegaly Ext: Movement and sensation intact. No gross muscle atrophy, no edema, no contractures. Postoperative dressing/Eliceo wrap with ice pack in place to left knee. Neuro: Speech clear, face symmetrical and CN II-XII grossly intact with no noted focal neuro deficits Psych: Alert and oriented to person, place, time, and situation. Appropriate and pleasant affect. Assessment and Plan of Care: Status post left total knee arthroplasty Management per primary admitting orthopedic surgery team including DVT prop hylaxis, pain management, wound/dressing management, weightbearing, and PT/OT. Currently on DVT prophylaxis with aspirin 325 mg twice daily, recommend restarting Xarelto once cleared by orthopedic surgery to resume. Acute blood loss anemia Expected and stable finding with preoperative hemoglobin of 13.2 and postoperative hemoglobin of 11.6. No signs of active bleeding and no need for transfusion or further intervention at this time. We will continue to monitor with repeat a.m. labs. Postoperative urinary retention. Resolved Diabetes mellitus with hyperglycemia Blood glucose 155. Patient to resume Levemir 50 units twice daily and placed on glycemic protocol with NovoLog sliding scale. CAD status post CABG x 4 Nonischemic cardiomyopathy status post AICD placement Aortic valve disease Hypertension Hyperlipidemia Pulmonary hypertension Chronic atrial fibrillation Xarelto held pending clearance by orthopedic surgery to resume. Patient to otherwise continue daily medication regimen with atorvastatin 40 mg daily, Bumex 2 mg daily, metoprolol 25 mg daily, and Entresto 24-26 mg tablet daily. Recommend resuming Xarelto once cleared by orthopedic surgery to resume. Recommend telemetry monitoring during postoperative period. Data and imaging reviewed: Preoperative labs reviewed. CBC unremarkable showing WBC count 5.7, hemogl obin 13.2, platelet count of 187. BMP showing mild prerenal azotemia with BUN of 33 otherwise normal findings. Blood glucose was 155. Vital signs reviewed. Blood pressure 143/80, heart rate 69, respiratory rate 17, temp 97.5 F, and SpO2 of 95% on room air. Thank you for allowing us to participate in the care of this pleasant patient. Do not hesitate to contact us with questions. Someone can be reached from the [facility] hospitalist group all hours of the day at [phone] or via [employer]. Patient was seen independently by Nurse Practitioner. This document was prepared using [employer] dictation software. Please allow for errors in hog handler while rare they do occur. Akbar Wyatt NP rendered care for this patient independently, reviewed the fin dings and plan as documented in the note above. I did not physically speak with or examine the patient on this date. Objective - Vital Signs Vital signs: Vital Signs Temp 97.7 F 04/21/24 07:43 Pulse 74 04/21/24 07:43 Resp 16 04/21/24 07:43 BP 159/72 04/21/24 07:43 Pulse Ox 94 L 04/21/24 07:43 FiO2 Intake & Output 04/20/24 04/21/24 04/21/24 18:59 06:59 18:59 Intake Total 2050 Output Total 640 1200 Balance 1411 -1200 Weight 86.4 kg Intake: IV 2050 Output: Urine 600 1200 Estimated Blood Loss 40 - Labs CBC & Chem 7: 04/21/24 05:31 04/21/24 05:31 Labs: Abnormal Lab Results - Last 24 Hours (Table) 04/20/24 04/20/24 Range/Units 13:46 20:51 POC Glucose (mg/dL) 118 H 148 H (70-110) mg/dL
[2024-04-21 16:12] LABS: Glucose,Whole Blood 223 mg/dL (70-110)
[2024-04-21 21:07] LABS: Glucose,Whole Blood 208 mg/dL (70-110)
[2024-04-22 06:31] LABS: Glucose,Whole Blood 98 mg/dL (70-110)
[2024-04-22 08:59] LABS: HCT 36.5 % (39.6-50.0); HGB 11.3 g/dL (13.0-17.0); MCH 27.8 pg (27.0-32.0); MCV 89.7 FL (80.0-97.0); Mean Platelet Volume 11.2 FL (9.5-12.2); NRBC Per 100 WBC 0 X 10*3/uL (0.00-0.01); Platelet Count 158 X 10*3/uL (140-440); RBC 4.07 X 10*6/uL (4.40-5.60); RDW 22.2 % (11.5-14.5)
[2024-04-22 09:54] LABS: Magnesium 1.8 mg/dL (1.5-2.4)
[2024-04-22 10:45] LABS: BUN/Creat Ratio 17.22 Ratio (12.00-20.00); Blood Urea Nitrogen 15.5 mg/dL (9.0-27.0); Calcium 9.4 mg/dL (8.7-10.3); Carbon Dioxide 26.9 mmol/L (21.6-31.8); Chloride 103 mmol/L (96-109); Glucose 121 mg/dL (70-110); Potassium 4.1 mmol/L (3.5-5.5); Sodium 139 mmol/L (135-145)
[2024-04-22 12:00] LABS: Glucose,Whole Blood 74 mg/dL (70-110)
--- NOTE | 2024-04-22 12:49 | P.DS ---
Providers Date of admission: 04/21/24 13:10 Expected date of discharge: 04/22/24 Attending physician: Sky Rausch Consults: 04/20/24 09:16 Consult Physician Routine Consulting Provider: Tip Bang Consult Reason/Comments: Medical management Do you want consulting provider notified?: Yes Primary care physician: Fabiano Dhillon [place] Hospital Course: date of admission: 04/20/2024 date of discharge: 04/22/2024 Admission diagnosis: status post left total knee arthroplasty Discharge diagnosis: same Attending physician: Dr. Rausch Surgical procedures: left total knee arthroplasty Brief history: Patient is a 78-year-old male with a history of progressive primary left knee osteoarthritis. At this point patient has failed conservative treatment measures and has opted to proceed with a elective left total knee arthroplasty. Hospital course: Details of patient's surgery can be found in operative report. Patient tolerated the procedure well and was subsequently transported to orthopedic floor. Patient's orthopeidc and medical care was provided daily. Patient had daily laboratory tests performed for evaluation of overall blood counts. Patient had daily physical therapy to include strengthening range of motion as well as education with walker ambulation. Patient was treated with aspirin for their postoperative DVT prophylaxis during their inpatient stay. Patient was noted to have a relatively uneventful postoperative course. Patient reported satisfactory pain control with oral pain medications by postoperative day 1. Patient showed satisfactory progress with physical therapy. Patient moved steadily through the program and had no difficulty meeting the goals by postoperative day 2. Given patient's otherwise satisfactory course and having met physical therapy goals, plan is to discharge patient home on postoperative day 2. Discharge condition/disposition: Patient will be discharged home in stable condition. Discharge medications: Instructions are given on resumption of patient's normal daily medications per primary care recommendation, in addition patient will be prescribed [place] 5 mg / 325 mg Discharge instructions: 1. Wound care and infection precautions, keep incision dry and covered while showering, no lotions, creams, moisturizers. No soaking, tubs, pools, hottubs. Do not scrub over the incision. 2. Weight-bear as tolerated with walker / cane until follow-up. 3. Ice and elevate when necessary. Do not exceed 20 minutes per hour with ice pack. 4. Utilize compression sleeve until seen at first follow up appointment. 5. Visiting nursing care. 6. Home physical therapy including home CPM] 7. Pain meds and anticoagulants per prescription. 8. Pain medication has potential to cause constipation. Increase oral fluid and fiber intake. Contact primary care provider if you have not had a bowel movement within 48 hours after discharge 9. No anti-inflammatory medication until discussed at first post operative visit, this including Motrin, Aleve, Mobic, Diclofenac 10. Follow up in office at 2 weeks postop with Fredy Johnson PA-C/Scout Jolley 11. Follow up with your primary care doctor 7-10 days after discharge. 12. Contact [facility] with any questions, . Procedures: Left total knee arthroplasty Patient Condition at Discharge: Good Plan - Discharge Summary Discharge Rx Participant: Yes New Discharge Prescriptions: New HYDROcodone/APAP 5-325MG [[place] 5-325] 1 tab PO Q4HR PRN #42 tab PRN Reason: Pain No Action Insulin Aspart [NovoLOG] See Protocol SQ AC-TID Fluticasone Propionate [Flonase Allergy Relief] 1 spray EA NOSTRIL BID Ascorbic Acid [Vitamin C] 500 mg PO DAILY Thiamine [Vitamin B-1] 100 mg PO QAM Ferrous Sulfate [Feosol] 325 mg PO BID Sacubitril/Valsartan [Entresto 24 mg-26 mg Tablet] 1 tab PO QAM Rivaroxaban [Xarelto] 20 mg PO DAILY Empagliflozin [Jardiance] 10 mg PO QAM Bumetanide [BUMEX] 2 mg PO QAM Aspirin [Adult Low Dose Aspirin EC] 81 mg PO DAILY Cbd Oil 1 drop SUBLINGUAL BID Insulin Glargine,Hum.rec.anlog [Lantus Solostar Pen] 50 units SQ BID Metoprolol Succinate (ER) [Toprol XL] 25 mg PO QAM Docusate [Colace] 100 mg PO QAM Pantoprazole [Protonix] 40 mg PO QAM Rosuvastatin [Crestor] 20 mg PO QAM Dulaglutide [Trulicity] 0.75 mg SQ WEEKLY Discharge Medication List Insulin Aspart [NovoLOG] See Protocol SQ AC-TID 01/08/19 [History] Ascorbic Acid [Vitamin C] 500 mg PO DAILY 04/14/24 [History] Aspirin [Adult Low Dose Aspirin EC] 81 mg PO DAILY 04/14/24 [History] Bumetanide [BUMEX] 2 mg PO QAM 04/14/24 [History] Cbd Oil 1 drop SUBLINGUAL BID 04/14/24 [History] Docusate [Colace] 100 mg PO QAM 04/14/24 [History] Dulaglutide [Trulicity] 0.75 mg SQ WEEKLY 04/14/24 [History] Empagliflozin [Jardiance] 10 mg PO QAM 04/14/24 [History] Ferrous Sulfate [Feosol] 325 mg PO BID 04/14/24 [History] Fluticasone Propionate [Flonase Allergy Relief] 1 spray EA NOSTRIL BID 04/14/24 [History] Insulin Glargine,Hum.rec.anlog [Lantus Solostar Pen] 50 units SQ BID 04/14/24 [History] Metoprolol Succinate (ER) [Toprol XL] 25 mg PO QAM 04/14/24 [History] Pantoprazole [Protonix] 40 mg PO QAM 04/14/24 [History] Rivaroxaban [Xarelto] 20 mg PO DAILY 04/14/24 [History] Rosuvastatin [Crestor] 20 mg PO QAM 04/14/24 [History] Sacubitril/Valsartan [Entresto 24 mg-26 mg Tablet] 1 tab PO QAM 04/14/24 [History] Thiamine [Vitamin B-1] 100 mg PO QAM 04/14/24 [History] HYDROcodone/APAP 5-325MG [[place] 5-325] 1 tab PO Q4HR PRN #42 tab 04/22/24 [Rx] Follow up Appointment(s)/Referral(s): [facility],Equipment [NON-STAFF] - As Needed (*Please call [facility] once home to arrange delivery of the Continuous Passive Motion (CPM) machine. ) Matthew Johnson PAC [PHYSICIAN LEAD VULCANIZING OPERATOR] - 2 Weeks [facility] Visiting Nurse, [NON-STAFF] - 1-2 Days ([facility] will call you to schedule your in home nursing and physical therapy visits. ) Activity/Diet/Wound Care/Special Instructions: Orthopedic Discharge Instructions: 1. Wound care and infection precautions, keep incision dry and covered while showering, no lotions, creams, moisturizers. No soaking, pools, hot tubs. Do not scrub over incision. 2. Weight-bear as tolerated with walker / cane until follow-up. 3. Ice and elevate when necessary. Do not exceed 20 minutes per hour with ice pack. 4. Utilize compression sleeve until seen at first follow up appointment. 5. Pain meds and anticoagulants per prescription. 6. Pain medication has potential to cause constipation. Increase oral fluid and fiber intake. Contact primary care provider if you have not had a bowel movement within 48 hours after discharge. 7. No anti-inflammatory medication until discussed at first post operative visit, this including Motrin, Aleve, Mobic, Diclofenac. 8. Follow up in office at 2 weeks postop with Fredy Johnson PA-C/Scout Guidry PA-C 9. Follow up with your primary care doctor 7-10 days after discharge. 10. Contact [facility] with any questions, . Wound care instructions: 1. Okay to remove surgical dressing as of 04/27/2024 2. Shower directly over the incision after removal of dressing Discharge Disposition: HOME WITH HOME HEALTH SERVICES
--- NOTE | 2024-04-22 12:49 | P.PN ---
Subjective Progress Note Date: 04/22/24 Principal diagnosis: Status post left total knee arthroplasty patient was evaluated today at bedside, he is resting in his hospital chair, his daughter is present at bedside. Patient is doing a lot better today with regards to pain control and ambulation. He has had 2 different episodes of a bowel movement, he continues to urinate with no issues. Pain is better controlled he states. He has no headaches, lightheadedness, chest pain or shortness of breath at this time. Objective - Vital Signs Vital signs: Vital Signs Temp 97.9 F 04/22/24 07:00 Pulse 67 04/22/24 07:00 Resp 18 04/22/24 07:00 BP 124/72 04/22/24 07:00 Pulse Ox 95 04/22/24 07:00 FiO2 Intake & Output 04/21/24 04/22/24 04/22/24 18:59 06:59 18:59 Output Total 900 900 Balance -900 -900 Output: Urine 900 900 Other: Voiding Method Toilet Urinal - Exam Left lower extremity: Incision is clean, dry, and intact. The foam dressing is in good condition. There is minimal soft tissue swelling and ecchymosis surrounding the medial and lateral aspects of the incision. Calf is soft, no tenderness with palpation. Plantar flexion, dorsiflexion, EHL, FHL are intact. Sensory exam to light touch throughout the extremity is intact, dorsal pedis pulses 2+. - Labs CBC & Chem 7: 04/22/24 05:11 04/22/24 05:11 Labs: Abnormal Lab Results - Last 24 Hours (Table) 04/21/24 04/21/24 04/22/24 Range/Units 16:11 21:05 05:11 RBC 4.07 L (4.40-5.60) X 10*6/uL Hgb 11.3 L (13.0-17.0) g/dL Hct 36.5 L (39.6-50.0) % MCHC 31.0 L (32.0-37.0) g/dL RDW 22.2 H (11.5-14.5) % Glucose (70-110) mg/dL POC Glucose (mg/dL) 223 H 208 H (70-110) mg/dL 04/22/24 Range/Units 05:11 RBC (4.40-5.60) X 10*6/uL Hgb (13.0-17.0) g/dL Hct (39.6-50.0) % MCHC (32.0-37.0) g/dL RDW (11.5-14.5) % Glucose 121 H (70-110) mg/dL POC Glucose (mg/dL) (70-110) mg/dL Assessment and Plan Assessment: postoperative day #2 status post left total knee arthroplasty Plan: pain control, plan for discharge on [place] 5 mg / 325 mg DVT prophylaxis, will resume his Xarelto 20 mg and aspirin 81 mg on 04/23/2024 wound care instructions discussed, this to include the use of the On-Q pain catheter, showering instructions along with icing and elevating encourage incentive spirometer continue PT/OT medical recommendations appreciated discharge planning: stable for discharge home today Time with Patient: Less than 30
[2024-04-22 12:54] VITALS: BP 117/61; PULSE 79; RESP 16; TEMP 98.2
--- NOTE | 2024-04-22 13:46 | P.PN ---
Subjective Progress Note Date: 04/22/24 Hospital Course: Patient is a very pleasant 78-year-old male with a past medical history of CAD status post CABG x 4 followed by stenting x 2, nonischemic cardiomyopathy status post AICD placement, aortic valve disease, hypertension, hyperlipidemia, pulmonary hypertension, chronic atrial fibrillation on anticoagulation with Xarelto, insulin-dependent diabetes mellitus, iron deficiency anemia, and GERD. He is currently admitted to orthopedic surgery team status post elective left total knee arthroplasty secondary to severe left knee osteoarthritis. We were consulted for medical management throughout hospitalization. Physical exam: Patient seen and fully evaluated at bedside this morning. He was sitting in the chair and reports doing well this morning. Patient reports moderate pain but states he just completed working with physical therapy. Patient denies having any new complaints or concerns at this time. Patient reports he did the stairs well and feels as though he is ready to go home. Patient reports he has a lot of support at home and feels good about his plans for discharge home with home care and physical therapy. Vital signs reviewed and stable. General: Nontoxic, no distress and appears stated age. Derm: Skin warm and dry, normal coloration for ethnicity. Head: Atraumatic, normocephalic and symmetric. Eyes: EOM's intact, no lid lag, and anicteric sclera Mouth: no lip lesions, mucus membranes moist Cardiovascular: regular rate and rhythm with normal S1S2, systolic murmur, posi tive posterior tibial pulses bilaterally, and cap refill < 2 seconds. Pacemaker left anterior chest. Lungs: Respirations even, regular, and unlabored on room air. Lungs CTA bilaterally, no rhonchi, no rales, no wheezing, and no accessory muscle usage. Abdominal: soft, nontender to palpation, no guarding, no appreciable organomegaly Ext: Movement and sensation intact. No gross muscle atrophy, no edema, no contractures. Postoperative dressing/Eliceo wrap with ice pack in place to left knee. Neuro: Speech clear, face symmetrical and CN II-XII grossly intact with no noted focal neuro deficits Psych: Alert and oriented to person, place, time, and situation. Appropriate and pleasant affect. Assessment and Plan of Care: Status post left total knee arthroplasty Management per primary admitting orthopedic surgery team including DVT prophylaxis, pain management, wound/dressing management, weightbearing, and PT/OT. Currently on DVT prophylaxis with aspirin 325 mg twice daily, recommend restarting Xarelto once cleared by orthopedic surgery to resume. Acute blood loss anemia Expected and stable finding with preoperative hemoglobin of 13.2 and po stoperative hemoglobin of 11.6. No signs of active bleeding and no need for transfusion or further intervention at this time. Postoperative urinary retention. Resolved Diabetes mellitus with hyperglycemia Blood glucose 155. Patient to resume Levemir 50 units twice daily and placed on glycemic protocol with NovoLog sliding scale. CAD status post CABG x 4 Nonischemic cardiomyopathy status post AICD placement Aortic valve disease Hypertension Hyperlipidemia Pulmonary hypertension Chronic atrial fibrillation Xarelto held pending clearance by orthopedic surgery to resume. Patient to otherwise continue daily medication regimen with atorvastatin 40 mg daily, Bumex 2 mg daily, metoprolol 25 mg daily, and Entresto 24-26 mg tablet daily. Recommend resuming Xarelto once cleared by orthopedic surgery to resume. Recommend telemetry monitoring during postoperative period. Data and imaging reviewed: Preoperative labs reviewed. CBC unremarkable showing WBC count 5.7, hemoglobin 13.2, platelet count of 187. BMP showing mild prerenal azotemia with BUN of 33 otherwise normal findings. Blood glucose was 155. Vital signs reviewed. Blood pressure 124/72, heart rate 67, respiratory rate 18, temp 97.9 F, and SpO2 of 95% on room air. Patient is medically optimized and stable for discharge once cleared by primary admitting orthopedic surgery team. Thank you for allowing us to participate in the care of this pleasant patient. Do not hesitate to contact us with questions. Someone can be reached from the [facility] hospitalist group all hours of the day at [phone] or via perfect serve. Patient was seen independently by Nurse Practitioner. This document was prepared using [employer] dictation software. Please allow for errors in floor trader while rare they do occur. Akbar Wyatt NP rendered care for this patient independently, reviewed the findings and plan as documented in the note above. I did not physically speak with or examine the patient on this date Objective - Vital Signs Vital signs: Vital Signs Temp 98.1 F 04/22/24 02:23 Pulse 70 04/22/24 02:23 Resp 17 04/22/24 02:23 BP 109/68 04/22/24 02:23 Pulse Ox 97 04/22/24 02:23 FiO2 Intake & Output 04/21/24 04/22/24 04/22/24 18:59 06:59 18:59 Output Total 900 900 Balance -900 -900 Output: Urine 900 900 Other: Voiding Method Toilet Urinal - Labs CBC & Chem 7: 04/22/24 05:11 04/22/24 05:11 Labs: Abnormal Lab Results - Last 24 Hours (Table) 04/21/24 04/21/24 04/21/24 Range/Units 05:31 05:31 11:44 RBC 4.30 L (4.40-5.60) X 10*6/uL Hgb 11.6 L (13.0-17.0) g/dL Hct 38.1 L (39.6-50.0) % MCHC 30.4 L (32.0-37.0) g/dL RDW 22.3 H (11.5-14.5) % Monocytes # 1.84 H (0.20-1.00) X 10*3/uL Macrocytosis (manual) 2+ A BUN/Creatinine Ratio 23.11 H (12.00-20.00) Ratio POC Glucose (mg/dL) 120 H (70-110) mg/dL 04/21/24 04/21/24 Range/Units 16:11 21:05 RBC (4.40-5.60) X 10*6/uL Hgb (13.0-17.0) g/dL Hct (39.6-50.0) % MCHC (32.0-37.0) g/dL RDW (11.5-14.5) % Monocytes # (0.20-1.00) X 10*3/uL Macrocytosis (manual) BUN/Creatinine Ratio (12.00-20.00) Ratio POC Glucose (mg/dL) 223 H 208 H (70-110) mg/dL
== END 2024-04-22 14:45 | disposition home health service (06) ==
LOC: OR 05:49 → 4SSUR 14:39 → OR 04-21 13:10
PROVIDERS: ADMIT Orthopaedic Surgery; ATTEND Orthopaedic Surgery
DX: M17.12 Unilateral primary osteoarthritis, left knee (principal); N99.89 Other postprocedural complications and disorders of genitourinary system; R33.9 Retention of urine, unspecified; E11.65 Type 2 diabetes mellitus with hyperglycemia; I25.10 Atherosclerotic heart disease of native coronary artery without angina pectoris; I11.0 Hypertensive heart disease with heart failure; I50.40 Unspecified combined systolic (congestive) and diastolic (congestive) heart failure; E78.2 Mixed hyperlipidemia; I42.8 Other cardiomyopathies; I27.20 Pulmonary hypertension, unspecified; I48.20 Chronic atrial fibrillation, unspecified; I73.9 Peripheral vascular disease, unspecified; I35.9 Nonrheumatic aortic valve disorder, unspecified; D50.9 Iron deficiency anemia, unspecified; K21.9 Gastro-esophageal reflux disease without esophagitis; I25.2 Old myocardial infarction; Z79.82 Long term (current) use of aspirin; Z79.4 Long term (current) use of insulin; Z79.84 Long term (current) use of oral hypoglycemic drugs; Z79.85 Long-term (current) use of injectable non-insulin antidiabetic drugs; Z79.01 Long term (current) use of anticoagulants; Z79.899 Other long term (current) drug therapy; Z95.810 Presence of automatic (implantable) cardiac defibrillator; Z95.5 Presence of coronary angioplasty implant and graft; Z95.1 Presence of aortocoronary bypass graft; Z87.891 Personal history of nicotine dependence
CPT/HCPCS: 64448; 64999; 80048; 83735; 85025; 85027; 85610; 85730

== ENCOUNTER 2024-04-23 07:19 | Emergency (ER) | payer MEDICARE ==
[2024-04-23] MEDS: HYDROcodone/APAP 5-325MG 1 EACH TAB PO STA (08:00)
[2024-04-23] MEDS: ONDANSETRON 4 MG/2 ML VIAL IVP STA (08:01)
[2024-04-23] MEDS: SODIUM CHLORIDE 0.9% 1,000 ML IV STA (08:01)
--- NOTE | 2024-04-23 08:13 | ED ---
General Adult HPI - General Chief complaint: Recheck/Abnormal Lab/Rx Stated complaint: post op-leg swelling Time Seen by Provider: 04/23/24 07:32 Source: patient, RN notes reviewed, old records reviewed Mode of arrival: wheelchair Limitations: no limitations - History of Present Illness Initial comments: Patient is a 78-year-old male who presents emergency department complaining of left knee swelling. Patient had total left knee replacement performed by Dr. Rausch on Saturday of this week. Patient has been doing well at home however noticed that this morning and somewhat last night that his left leg became swollen. His paresthesias sensation distal to the left knee. However intact sensation movement other than pain with movement of the left knee. Also has noticed that has been warm. Patient does have a past medical history remarkable for A-fib, CAD with CABG, CHF, diabetes, hypertension, hyperlipidemia. Was previously on Xarelto however patient has been holding it since prior to surgery. Denies any chest pain, shortness of breath, abdominal pain. Does endorse mild nausea with the pain. Presents for further evaluation at this time. - Related Data Home Medications Medication Instructions Recorded Confirmed Insulin Aspart [NovoLOG] See Protocol SQ AC-TID 01/08/19 04/20/24 Ascorbic Acid [Vitamin C] 500 mg PO DAILY 04/14/24 04/20/24 Aspirin [Adult Low Dose Aspirin EC] 81 mg PO DAILY 04/14/24 04/20/24 Bumetanide [BUMEX] 2 mg PO QAM 04/14/24 04/20/24 Cbd Oil 1 drop SUBLINGUAL BID 04/14/24 04/20/24 Docusate [Colace] 100 mg PO QAM 04/14/24 04/20/24 Dulaglutide [Trulicity] 0.75 mg SQ WEEKLY 04/14/24 04/20/24 Empagliflozin [Jardiance] 10 mg PO QAM 04/14/24 04/20/24 Ferrous Sulfate [Iron (65 MG 325 mg PO BID 04/14/24 04/20/24 Elemental)] Fluticasone Propionate [Flonase 1 spray EA NOSTRIL BID 04/14/24 04/20/24 Allergy Relief] Insulin Glargine,Hum.rec.anlog 50 units SQ BID 04/14/24 04/20/24 [Lantus Solostar Pen] Metoprolol Succinate (ER) [Toprol 25 mg PO QAM 04/14/24 04/20/24 XL] Pantoprazole [Protonix] 40 mg PO QAM 04/14/24 04/20/24 Rivaroxaban [Xarelto] 20 mg PO DAILY 04/14/24 04/20/24 Rosuvastatin [Crestor] 20 mg PO QAM 04/14/24 04/20/24 Sacubitril/Valsartan [Entresto 24 1 tab PO QAM 04/14/24 04/20/24 mg-26 mg Tablet] Thiamine [Vitamin B-1] 100 mg PO QAM 04/14/24 04/20/24 Previous Rx's Medication Instructions Recorded HYDROcodone/APAP 5-325MG [Graham 1 tab PO Q4HR PRN #42 tab 04/22/24 5-325] Cyclobenzaprine [Flexeril] 5 mg PO TID PRN 5 Days #15 tablet 04/23/24 cefaDROXiL [Duricef] 500 mg PO Q12HR 5 Days #10 cap 04/23/24 Allergies Allergy/AdvReac Type Severity Reaction Status Date / Time No Known Allergies Allergy Verified 04/23/24 07:23 Review of Systems ROS Statement: Those systems with pertinent positive or pertinent negative responses have been documented in the HPI. Review of Systems: CONST: Denies fever EYES: Denies blurry vision ENT: Denies nasal congestion C/V: Denies Chest pain RESP: Denies shortness of breath GI: Denies abdominal pain : Denies dysuria SKIN: Denies rash. MSK: Endorses left knee swelling, pain NEURO: Denies headache ROS Other: All systems not noted in ROS Statement are negative. Past Medical History Past Medical History: Atrial Fibrillation, Coronary Artery Disease (CAD), Chest Pain / Angina, Heart Failure, Diabetes Mellitus, Hearing Disorder / Deafness, Hyperlipidemia, Hypertension, Myocardial Infarction (CO), Osteoarthritis (OA) Additional Past Medical History / Comment(s): Type II DM, cardiomyopathy, paroxysmal atrial fibrillation, anemia, hard of hearing, colon cancer 12/26 - bowel resection Last Myocardial Infarction Date:: 2007 History of Any Multi-Drug Resistant Organisms: None Reported Past Surgical History: Coronary Bypass/CABG, Heart Catheterization With Stent, Pacemaker Additional Past Surgical History / Comment(s): CABG x 4 vessels, colon resection 12/26 in [place] Additional Past Anesthesia/Blood Transfusion Reaction / Comment(s): Pt. states he was itchy for 2 mos. after colon resection in 12/2023. Date of Last Stent Placement:: 2007 Type of Cardiac Device: Biventricular Pacemaker, AICD Device Placement Date:: 10/2022 Past Psychological History: No Psychological Hx Reported Smoking Status: Former smoker Past Alcohol Use History: Daily Past Drug Use History: None Reported - Past Family History Daughter(s) Family Medical History: Cancer Additional Family Medical History / Comment(s): breast cancer Mother Family Medical History: Cancer Additional Family Medical History / Comment(s): breast Brother(s) Family Medical History: Coronary Artery Disease (CAD) Additional Family Medical History / Comment(s): CABG General Exam - General Exam Comments Initial Comments: General: Appears in mild distress secondary to left knee discomfort. HEAD: Normal with no signs of head trauma. EYES: PERRLA, EOMI, conjunctiva normal, no discharge. ENT: Hearing grossly intact, normal oropharynx. RESPIRATORY: Clear breath sounds bilaterally. No wheezes, rales, or rhonchi. C/V: Regular rate and rhythm. S1 and S2 auscultated, peripheral pulses 2+ and intact throughout ABD: Abd is soft, nontender, nondistended EXT: Decreased range of motion left knee secondary to recent surgery. Left knee and leg are mildly warm, edematous. No significant calf tenderness or posterior thigh tenderness. No obvious drainage from the surgical sites. Neur ovascularly intact. SKIN: No rashes or lesions observed on exposed skin. NEURO: Alert and oriented x 4. Limitations: no limitations Course Vital Signs 04/23/24 04/23/24 07:21 12:02 Temperature 98.2 F 98.0 F Pulse Rate 89 72 Respiratory 20 18 Rate Blood Pressure 164/84 141/81 O2 Sat by Pulse 99 96 Oximetry Medical Decision Making - Medical Decision Making Was pt. sent in by a medical professional or institution (, PA, [employer], urgent care, hospital, or detention...) When possible be specific @ -No Did you speak to anyone other than the patient for history (EMS, parent, family, police, friend...)? What history was obtained from this source @ -No Did you review nursing and triage notes (agree or disagree)? Why? @ -I reviewed and agree with nursing and triage notes Were old charts reviewed (outside hosp., previous admission, EMS record, old EKG, old radiological studies, urgent care reports/EKG's, detention records)? Report findings @ -Old charts reviewed to evaluate patient's prior medication use. Differential Diagnosis (chest pain, altered mental status, abdominal pain women, abdominal pain men, vaginal bleeding, weakness, fever, dyspnea, syncope, headache, dizziness, GI bleed, back pain, seizure, CVA, palpatations, mental health, musculoskeletal)? @ -Postop infection, postop swelling, DVT. This list is not all inclusive. EKG interpreted by me (3pts min.). @ -None done X-rays interpreted by me (1pt min.). @ -None done CT interpreted by me (1pt min.). @ -CT of the left knee reveals no obvious acute infectious process. There is evidence of a joint effusion with some mixture of blood products and serous fluid postop. No other obvious finding. U/S interpreted by me (1pt. min.). @ -Ultrasound negative for DVT bilaterally. Patient does have a fluid collection in the posterior aspect of the left knee. What testing was considered but not performed or refused? (CT, X-rays, U/S, labs)? Why? @ -None What meds were considered but not given or refused? Why? @ -None Did you discuss the management of the patient with other professionals (professionals i.e. , PA, [employer], lab, RT, psych nurse, mental health social worker, tier in, teacher, earth science technical officer, manager of case management)? Give summary @ -Spoke with Anju Loving the midlevel provider for Dr. Rausch. We reviewed laboratory study findings as well as imaging results. She recommended follow-up with ARLETTE Johnson tomorrow at their office and she will be contacted notify the office of the follow-up. Recommended empiric antibiotics. No indication for admission at this time after discussion with her. Was smoking cessation discussed for >3mins.? @ -No Was critical care preformed (if so, how long)? @ -No Were there social determinants of health that impacted care today? How? (Homelessness, low income, unemployed, alcoholism, drug addiction, transportation, low edu. Level, literacy, decrease access to med. care, long term, rehab)? @ -No Was there de-escalation of care discussed even if they declined (Discuss DNR or withdrawal of care, Hospice)? DNR status @ -No What co-morbidities impacted this encounter? (DM, HTN, Smoking, COPD, CAD, Cancer, CVA, ARF, Chemo, Hep., AIDS, mental health diagnosis, sleep apnea, morbid obesity)? @ -Postop day 2 from total left knee replacement. Was patient admitted / discharged? Hospital course, mention meds given and route, prescriptions, significant lab abnormalities, going to OR and other pert inent info. @ -Patient presents emergency department left lower extremity swelling, left knee pain on postop day 2 following left knee replacement. Vitals within acceptable limits. We will obtain basic labs, ultrasound of the left lower extremity, as well as possibly a CT to evaluate for any evidence of infection. Patient was in agreement this plan. He will be symptomatically treated with ora l Graham, IV Zofran, IV fluids. Duplex negative for DVT but there is a fluid collection I recommend CT. Patient was in agreement this plan. Labs are remarkable for no leukocytosis. CRP is elevated 17.9 but had recent surgery which is likely the cause. Lactic acid within normal limits. CT imaging revealed no evidence of obvious acute infection. I discussed results with the patient. I did contact orthopedics MLP Anju Loving the midlevel provider for Dr. Rausch. We reviewed laboratory study findings as well as imaging results. She recommended follow-up with ARLETTE Johnson tomorrow at their office and she will be contacted notify the office of the follow-up. Recommended empiric antibiotics. No indication for admission at this time after discussion with her. Patient in agreement with this plan. Patient placed on Duricef at Ortho's request. Instructed to follow-up with orthopedics tomorrow. Strict return precautions discussed. Given a dose of Duricef prior to discharge. I will provide the patient with a prescription for Duricef. I instructed the patient to follow up with their PCP in the next 1-3 days.. I explained that the patient should return to the emergency department if they experience any worsening symptoms. Strict return precautions were discussed with the patient. The patient expressed understanding of these instructions. I answered all questions that the patient had. The patient was discharged home in fair condition with their prescriptions and follow up information. Undiagnosed new problem with uncertain prognosis? @ -No Drug Therapy requiring intensive monitoring for toxicity (Heparin, Nitro, Insulin, Cardizem)? @ -No Were any procedures done? @ -No Diagnosis/symptom? @ -Postop pain and swelling Acute, or Chronic, or Acute on Chronic? @ -Acute Uncomplicated (without systemic symptoms) or Complicated (systemic symptoms)? @ -Uncomplicated Side effects of treatment? @ -None Exacerbation, Progression, or Severe Exacerbation] @ -No Poses a threat to life or bodily function? @ -Unlikely - Lab Data Result diagrams: 04/23/24 07:52 04/23/24 07:52 Lab Results 04/23/24 04/23/24 04/23/24 Range/Units 07:52 07:52 07:52 WBC 8.3 (3.8-10.6) k/uL RBC 4.01 L (4.30-5.90) m/uL Hgb 11.2 L (13.0-17.5) gm/dL Hct 36.5 L (39.0-53.0) % MCV 91.0 (80.0-100.0) fL MCH 28.0 (25.0-35.0) pg MCHC 30.8 L (31.0-37.0) g/dL RDW 19.8 H (11.5-15.5) % Plt Count 188 (150-450) k/uL MPV 8.6 Neutrophils % 74 % Lymphocytes % 10 % Monocytes % 12 % Eosinophils % 1 % Basophils % 0 % Neutrophils # 6.1 (1.3-7.7) k/uL Lymphocytes # 0.8 L (1.0-4.8) k/uL Monocytes # 1.0 (0-1.0) k/uL Eosinophils # 0.1 (0-0.7) k/uL Basophils # 0.0 (0-0.2) k/uL Hypochromasia Marked Anisocytosis Slight PT (10.0-12.5) sec INR (<1.2) APTT (22.0-30.0) sec Sodium 135 L (137-145) mmol/L Potassium 4.4 (3.5-5.1) mmol/L Chloride 100 (98-107) mmol/L Carbon Dioxide 27 (22-30) mmol/L Anion Gap 8 mmol/L BUN 22 H (9-20) mg/dL Creatinine 0.74 (0.66-1.25) mg/dL Est GFR (CKD-EPI)AfAm >90 (>60 ml/min/1.73 sqM) Est GFR (CKD-EPI)NonAf 88 (>60 ml/min/1.73 sqM) Glucose 109 H (74-99) mg/dL Plasma Lactic Acid Guicho 1.3 (0.7-2.0) mmol/L Calcium 9.1 (8.4-10.2) mg/dL Total Bilirubin 1.0 (0.2-1.3) mg/dL AST 40 (17-59) U/L ALT 14 (4-49) U/L Alkaline Phosphatase 55 (38-126) U/L C-Reactive Protein 17.9 H (<1.0) mg/dL Total Protein 6.9 (6.3-8.2) g/dL Albumin 3.6 (3.5-5.0) g/dL 04/23/24 Range/Units 07:52 WBC (3.8-10.6) k/uL RBC (4.30-5.90) m/uL Hgb (13.0-17.5) gm/dL Hct (39.0-53.0) % MCV (80.0-100.0) fL MCH (25.0-35.0) pg MCHC (31.0-37.0) g/dL RDW (11.5-15.5) % Plt Count (150-450) k/uL MPV Neutrophils % % Lymphocytes % % Monocytes % % Eosinophils % % Basophils % % Neutrophils # (1.3-7.7) k/uL Lymphocytes # (1.0-4.8) k/uL Monocytes # (0-1.0) k/uL Eosinophils # (0-0.7) k/uL Basophils # (0-0.2) k/uL Hypochromasia Anisocytosis PT 10.9 (10.0-12.5) sec INR 1.0 (<1.2) APTT 29.7 (22.0-30.0) sec Sodium (137-145) mmol/L Potassium (3.5-5.1) mmol/L Chloride (98-107) mmol/L Carbon Dioxide (22-30) mmol/L Anion Gap mmol/L BUN (9-20) mg/dL Creatinine (0.66-1.25) mg/dL Est GFR (CKD-EPI)AfAm (>60 ml/min/1.73 sqM) Est GFR (CKD-EPI)NonAf (>60 ml/min/1.73 sqM) Glucose (74-99) mg/dL Plasma Lactic Acid Guicho (0.7-2.0) mmol/L Calcium (8.4-10.2) mg/dL Total Bilirubin (0.2-1.3) mg/dL AST (17-59) U/L ALT (4-49) U/L Alkaline Phosphatase (38-126) U/L C-Reactive Protein (<1.0) mg/dL Total Protein (6.3-8.2) g/dL Albumin (3.5-5.0) g/dL Disposition Clinical Impression: Post-op pain Disposition: HOME SELF-CARE Condition: Fair Additional Instructions: Follow-up with Fredy Johnson, midlevel provider for Dr. Rausch tomorrow. Call the office today to set up the appointment. They will be expecting your call. Return if any worsening symptoms. Prescriptions: cefaDROXiL [Duricef] 500 mg PO Q12HR 5 Days #10 cap Cyclobenzaprine [Flexeril] 5 mg PO TID PRN 5 Days #15 tablet PRN Reason: Pain Is patient prescribed a controlled substance at d/c from ED?: No Referrals: Buster Olvera DO [STAFF PHYSICIAN] - 1-2 days Sky Rausch DO [Doctor of Osteopathic Medicine] - 1-2 days Time of Disposition: 11:10
[2024-04-23 08:18] LABS: Anisocytosis Slight; Basophils % (A) 0 %; Eosinophils # (A) 0.1 k/uL (0-0.7); Eosinophils % (A) 1 %; HCT 36.5 % (39.0-53.0); HGB 11.2 gm/dL (13.0-17.5); Hypochromasia Marked; Lymphocytes # (A) 0.8 k/uL (1.0-4.8); Lymphocytes % (A) 10 %; MCHC 30.8 g/dL (31.0-37.0); Mean Platelet Volume 8.6; Monocytes % (A) 12 %; Neutrophils # (A) 6.1 k/uL (1.3-7.7); Neutrophils % (A) 74 %; Platelet Count 188 k/uL (150-450); RBC 4.01 m/uL (4.30-5.90); RDW 19.8 % (11.5-15.5); WBC 8.3 k/uL (3.8-10.6)
[2024-04-23 08:22] LABS: ALT 14 U/L (4-49); African American GFR (CKD) >90 (>60 ml/min/1.73 sqM); Anion Gap 8 mmol/L; Blood Urea Nitrogen 22 mg/dL (9-20); Calcium 9.1 mg/dL (8.4-10.2); Carbon Dioxide 27 mmol/L (22-30); Chloride 100 mmol/L (98-107); Glucose 109 mg/dL (74-99); Non-African American GFR(CKD) 88 (>60 ml/min/1.73 sqM); Sodium 135 mmol/L (137-145)
[2024-04-23 08:23] LABS: Partial Thromboplastin Time 29.7 sec (22.0-30.0); Prothrombin Time 10.9 sec (10.0-12.5)
[2024-04-23 08:29] LABS: AST 40 U/L (17-59); Albumin 3.6 g/dL (3.5-5.0); Alkaline Phosphatase 55 U/L (38-126); Potassium 4.4 mmol/L (3.5-5.1); Total Protein 6.9 g/dL (6.3-8.2)
--- NOTE | 2024-04-23 08:30 | US ---
EXAMINATION TYPE: US venous doppler duplex LE BI DATE OF EXAM: 04/23/2024 8:25 AM COMPARISON: NONE CLINICAL INDICATION: Male, 78 years old with history of lower extremity swelling, eval for dvt; Leg p ain and swelling s/p left total knee SIDE PERFORMED: Bilateral TECHNIQUE: The lower extremity deep venous system is examined utilizing real time linear array sonog joao with graded compression, doppler sonography and color-flow sonography. VESSELS IMAGED: Common Femoral Vein Deep Femoral Vein Greater Saphenous Vein * Femoral Vein Popliteal Vein Small Saphenous Vein * Proximal Calf Veins (* superficial vessels) Right Leg: Negative for DVT Left Leg: Negative for DVT, Fem distal compressions not obtained due to edema, Complex fluid collec tion left pop fossa= 7.1 x 1.5 x 3.8 cm IMPRESSION: Grayscale, color doppler, spectral doppler imaging performed of the deep veins of the lo wer extremities. There is normal flow, compressibility, vascular waveforms. [facility], , 04/23/2024 8:28 AM
[2024-04-23 10:03] LABS: C Reactive Protein 17.9 mg/dL (<1.0)
--- NOTE | 2024-04-23 10:41 | CT ---
EXAMINATION TYPE: CT knee LT w con CT DLP: 459.2 mGycm, Automated exposure control for dose reduction was used. DATE OF EXAM: 04/23/2024 9:51 AM COMPARISON: 04/20/2024 CLINICAL INDICATION: Male, 78 years old with history of pain, swelling. post op knee surgery; Ángel BOYD in, swelling, post op knee surgery (Saturday) TECHNIQUE: Axial images were obtained of the CT knee LT w con, Additional coronal and sagittal reform atted images and soft tissue and bone window were obtained for review. . Contrast used:100 ml mL of Isovue 300 with IV Contrast, (None if empty) Oral contrast used: (None if empty) FINDINGS: Total left knee arthroplasty changes. Hardware appears intact. There is subcutaneous lucenc ies throughout the anterior leg compatible with gas from recent surgery. Joint effusion which is mixe d density. No evidence of fracture. The arterial vasculature posterior to the knee is patent. Streak y edema seen throughout the subcutaneous tissues. IMPRESSION: Post knee arthroplasty without evidence of fracture. Moderate joint effusion is present likely admixt ure of blood products and serous fluid. [facility], , 04/23/2024 10:38 AM
[2024-04-23] MEDS: CEPHALEXIN 500 MG CAP PO STA (11:56)
[2024-04-23 12:55] VITALS: BP 141/81; PULSE 72; RESP 18; TEMP 98
[2024-04-24 01:32] LABS: Erythrocyte Sedimentation Rate 83 mm/Hr (0-20)
== END 2024-04-23 12:08 | disposition home or self-care (01) ==
LOC: EC 07:19
CPT/HCPCS: 36415; 80053; 83605; 85025; 85610; 85652; 85730; 86140; 93970; 96361; 96374; 99284

== ENCOUNTER 2024-05-03 13:32 | Emergency (ER) | payer MEDICARE ==
--- NOTE | 2024-05-03 14:39 | ED ---
Skin/Abscess/FB HPI - General Chief complaint: Skin/Abscess/Foreign Body Stated complaint: L sided abd issue Time Seen by Provider: 05/03/24 14:37 Source: patient, family, RN notes reviewed Mode of arrival: wheelchair Limitations: no limitations - History of Present Illness Initial comments: 78-year-old male presented to the ER with a chief complaint of a hematoma. Patient underwent left knee arthroplasty by Dr. Rausch on 04/23/24. Patient states he does take Xarelto for cardiac stents. Patient reports on Saturday he was experiencing some left back pain. He noticed on Saturday a bruise to his left lateral breast tissue. He states this is not painful and back pain has since subsided. He has not taken anything for pain at this time. He denies any known injuries or traumas. Denies any shortness of breath, dizziness, lightheadedness, chest pain or palpitations. No other complaints. - Related Data Home Medications Medication Instructions Recorded Confirmed Insulin Aspart [NovoLOG] See Protocol SQ AC-TID 01/08/19 04/20/24 Ascorbic Acid [Vitamin C] 500 mg PO DAILY 04/14/24 04/20/24 Aspirin [Adult Low Dose Aspirin EC] 81 mg PO DAILY 04/14/24 04/20/24 Bumetanide [BUMEX] 2 mg PO QAM 04/14/24 04/20/24 Cbd Oil 1 drop SUBLINGUAL BID 04/14/24 04/20/24 Docusate [Colace] 100 mg PO QAM 04/14/24 04/20/24 Dulaglutide [Trulicity] 0.75 mg SQ WEEKLY 04/14/24 04/20/24 Empagliflozin [Jardiance] 10 mg PO QAM 04/14/24 04/20/24 Ferrous Sulfate [Iron (65 MG 325 mg PO BID 04/14/24 04/20/24 Elemental)] Fluticasone Propionate [Flonase 1 spray EA NOSTRIL BID 04/14/24 04/20/24 Allergy Relief] Insulin Glargine,Hum.rec.anlog 50 units SQ BID 04/14/24 04/20/24 [Lantus Solostar Pen] Metoprolol Succinate (ER) [Toprol 25 mg PO QAM 04/14/24 04/20/24 XL] Pantoprazole [Protonix] 40 mg PO QAM 04/14/24 04/20/24 Rivaroxaban [Xarelto] 20 mg PO DAILY 04/14/24 04/20/24 Rosuvastatin [Crestor] 20 mg PO QAM 04/14/24 04/20/24 Sacubitril/Valsartan [Entresto 24 1 tab PO QAM 04/14/24 04/20/24 mg-26 mg Tablet] Thiamine [Vitamin B-1] 100 mg PO QAM 04/14/24 04/20/24 Previous Rx's Medication Instructions Recorded HYDROcodone/APAP 5-325MG [Medford 1 tab PO Q4HR PRN #42 tab 04/22/24 5-325] Cyclobenzaprine [Flexeril] 5 mg PO TID PRN 5 Days #15 tablet 04/23/24 cefaDROXiL [Duricef] 500 mg PO Q12HR 5 Days #10 cap 04/23/24 Allergies Allergy/AdvReac Type Severity Reaction Status Date / Time No Known Allergies Allergy Verified 05/03/24 13:37 Review of Systems ROS Statement: Those systems with pertinent positive or pertinent negative responses have been documented in the HPI. ROS Other: All systems not noted in ROS Statement are negative. Past Medical History Past Medical History: Atrial Fibrillation, Coronary Artery Disease (CAD), Chest Pain / Angina, Heart Failure, Diabetes Mellitus, Hearing Disorder / Deafness, Hyperlipidemia, Hypertension, Myocardial Infarction ([place]), Osteoarthritis (OA) Additional Past Medical History / Comment(s): Type II DM, cardiomyopathy, paroxysmal atrial fibrillation, anemia, hard of hearing, colon cancer 12/26 - bowel resection Last Myocardial Infarction Date:: 2007 History of Any Multi-Drug Resistant Organisms: None Reported Past Surgical History: Coronary Bypass/CABG, Heart Catheterization With Stent, Pacemaker Additional Past Surgical History / Comment(s): CABG x 4 vessels, colon resection 12/26 in [place] Additional Past Anesthesia/Blood Transfusion Reaction / Comment(s): Pt. states he was itchy for 2 mos. after colon resection in 12/2023. Date of Last Stent Placement:: 2007 Type of Cardiac Device: Biventricular Pacemaker, AICD Device Placement Date:: 10/2022 Past Psychological History: No Psychological Hx Reported Smoking Status: Former smoker Past Alcohol Use History: Daily Past Drug Use History: None Reported - Past Family History Daughter(s) Family Medical History: Cancer Additional Family Medical History / Comment(s): breast cancer Mother Family Medical History: Cancer Additional Family Medical History / Comment(s): breast Brother(s) Family Medical History: Coronary Artery Disease (CAD) Additional Family Medical History / Comment(s): CABG General Exam Limitations: no limitations General appearance: alert, in no apparent distress Respiratory exam: Present: normal lung sounds bilaterally, chest wall tenderness (Left lateral back. There is a healing contusion to left lateral breast tissue hematoma is not tender.) Cardiovascular Exam: Present: regular rate, normal rhythm, normal heart sounds. Absent: systolic murmur, diastolic murmur, rubs, gallop, clicks Neurological exam: Present: alert, oriented X3, CN II-XII intact Skin exam: Present: warm, dry, intact, normal color. Absent: rash Course Vital Signs 05/03/24 05/03/24 13:34 17:33 Temperature 98.1 F 97.8 F Pulse Rate 89 80 Respiratory 16 18 Rate Blood Pressure 142/82 138/80 O2 Sat by Pulse 95 96 Oximetry Medical Decision Making - Medical Decision Making Was pt. sent in by a medical professional or institution (, PA, PLANT INSPECTOR, urgent care, hospital, or residential...) When possible be specific @ -No Did you speak to anyone other than the patient for history (EMS, parent, family, police, friend...)? What history was obtained from this source @ -No Did you review nursing and triage notes (agree or disagree)? Why? @ -I reviewed and agree with nursing and triage notes Were old charts reviewed (outside hosp., previous admission, EMS record, old EKG, old radiological studies, urgent care reports/EKG's, residential records)? Report findings @ -No old charts were reviewed Differential Diagnosis (chest pain, altered mental status, abdominal pain women, abdominal pain men, vaginal bleeding, weakness, fever, dyspnea, syncope, headache, dizziness, GI bleed, back pain, seizure, CVA, palpatations, mental health, musculoskeletal)? @ -Differential Musculoskeletal: Muscular strain, contusion, ligament sprain, fracture, arthritis, septic arthritis, bursitis, cellulitis, muscle spasm, nerve compression, DVT, arterial occlusion, herpes zoster, electrolyte abnormality, tumor.... This is not meant to be in all inclusive list EKG interpreted by me (3pts min.). @ -None done X-rays interpreted by me (1pt min.). @ -Left ribs AP chest x-ray negative for acute process. CT interpreted by me (1pt min.). @ -None done U/S interpreted by me (1pt. min.). @ -None done What testing was considered but not performed or refused? (CT, X-rays, U/S, labs)? Why? @ -None What meds were considered but not given or refused? Why? @ -None Did you discuss the management of the patient with other professionals (professionals i.e. Dr., PA, PLANT INSPECTOR, lab, RT, psych nurse, dialysis social worker, store standards associate, teacher, seismology technical officer, case management director)? Give summary @ -No Was smoking cessation discussed for >3mins.? @ -No Was critical care preformed (if so, how long)? @ -No Were there social determinants of health that impacted care today? How? (Homelessness, low income, unemployed, alcoholism, drug addiction, transportation, low edu. Level, literacy, decrease access to med. care, longterm, rehab)? @ -No Was there de-escalation of care discussed even if they declined (Discuss DNR or withdrawal of care, Hospice)? DNR status @ -No What co-morbidities impacted this encounter? (DM, HTN, Smoking, COPD, CAD, Cancer, CVA, ARF, Chemo, Hep., AIDS, mental health diagnosis, sleep apnea, morbid obesity)? @ -Recent knee arthroplasty. Patient is also on Xarelto. Was patient admitted / discharged? Hospital course, mention meds given and route, prescriptions, significant lab abnormalities, going to OR and other pertinent info. @ -Discharge. 78-year-old male presented to the ER with a chief complaint of a left chest wall hematoma.History and physical exam completed. Vitals within normal limits. Patient in no signs of acute distress and resting comfortably in wheelchair. Exam remarkable for a healing contusion to the left lateral breast tissue. Mild tenderness to left lateral elsa. Hematoma is nontender. Lung sounds present in all lung ramírez. X-rays will be obtained to rule out fracture or pneumothorax. X-rays are negative. Upon reevaluation, patient resting comfortably in exam room no signs of acute distress. Patient is very eager for discharge. Pain believed to be musculoskeletal in nature. Flexeril starter pack given. Strict return parameters discussed. Patient discharged in stable condition with follow-up to as scheduled and PCP. Patient verbally expressed understanding and agreement with care plan. Case discussed with ED attending by Dr. Crystal. Undiagnosed new problem with uncertain prognosis? @ -No Drug Therapy requiring intensive monitoring for toxicity (Heparin, Nitro, Insulin, Cardizem)? @ -No Were any procedures done? @ -No Diagnosis/symptom? @ -Hematoma Acute, or Chronic, or Acute on Chronic? @ -Acute Uncomplicated (without systemic symptoms) or Complicated (systemic symptoms)? @ -Uncomplicated Side effects of treatment? @ -No Exacerbation, Progression, or Severe Exacerbation? @ -No Poses a threat to life or bodily function? How? (Chest pain, [place], [place], pneumonia, PE, COPD, DKA, ARF, appy, cholecystitis, CVA, Diverticulitis, Homicidal, Suicidal, threat to staff... and all critical care pts) @ -No - Radiology Data Radiology results: report reviewed, image reviewed Disposition Clinical Impression: Hematoma Disposition: HOME SELF-CARE Condition: Stable Instructions (If sedation given, give patient instructions): Hematoma (ED) Additional Instructions: Follow-up with orthopedics as scheduled. Do not take Flexeril and [place] together. These can make you drowsy and increased fall risk. Return to the ER for any new or worsening concerns. Is patient prescribed a controlled substance at d/c from ED?: No Referrals: Fabiano Dhillon MD [Primary Care Provider] - 1-2 days Sky Rausch DO [Doctor of Osteopathic Medicine] - 1-2 days
--- NOTE | 2024-05-03 17:18 | XR ---
EXAMINATION TYPE: XR ribs LT w pa chest xray DATE OF EXAM: 05/03/2024 3:19 PM CLINICAL INDICATION:Male, 78 years old with history of left rib pain and contusion; [facility] COMPARISON: TECHNIQUE: Frontal and oblique views of the left ribs with frontal chest radiograph. FINDINGS: Heart appears mildly enlarged. Postoperative changes, likely from CABG including median sternotomy wi res. Cranial-most wire is broken and minimally displaced. Left chest multilead pacemaker/AICD with le ads over the RA, RV, coronary sinus. No significant vascular congestion or edema. No focal airspace disease. Mild bibasilar atelectasis ve rsus scarring. No significant pleural effusion or evidence of pneumothorax. Mild scarring suggested i n the lung apices. No displaced or deforming rib fracture is seen, however nondisplaced fractures may remain radiographi dusty occult and tail callus formation. IMPRESSION: No acute displaced rib fracture. No pneumothorax. [facility], , 05/03/2024 5:16 PM
[2024-05-03] MEDS: CYCLOBENZAPRINE 10MG STARTER 3 TAB BTL PO STA (17:31)
[2024-05-03 17:38] VITALS: BP 138/80; PULSE 80; RESP 18; TEMP 97.8
== END 2024-05-03 18:59 | disposition home or self-care (01) ==
LOC: EC 13:32
CPT/HCPCS: 99283

== ENCOUNTER → 2024-06-09 | Outpatient (CLI) | payer MEDICARE ==
[2024-06-09 12:20] LABS: African American GFR (CKD) 70 (>60 ml/min/1.73 sqM); Blood Urea Nitrogen 31 mg/dL (9-20); Non-African American GFR(CKD) 61 (>60 ml/min/1.73 sqM)
--- NOTE | 2024-06-09 14:41 | CT ---
EXAMINATION TYPE: CT ChestAbdPelvis w con CT DLP: 1975 mGycm, Automated exposure control for dose reduction was used. DATE OF EXAM: 06/09/2024 1:27 PM COMPARISON: No direct comparisons. CLINICAL INDICATION:Male, 78 years old with history of C18.7 MALIGNANT NEOPLASM OF SIGMOID COLON; [facility] , Malignant neoplasm of sigmoid colon. Partial colon removed. Technique: Multiple axial images of the chest, abdomen, and pelvis were obtained following the intrav enous administration of 100 mL Isovue-300. Oral contrast was administered. Two-dimensional coronal an d sagittal reconstructions were obtained. Findings: CHEST: LUNGS/ PLEURA: Mild centrilobular emphysematous changes. No pleural effusion, pneumothorax, focal con solidation. Linear atelectasis within the right lower lobe. No suspicious pulmonary nodule or mass. AIRWAY: Patent and unremarkable.. HEART: Mild cardiomegaly. No pericardial effusion. Post-CABG changes. Left chest wall 3-lead cardiac pacemaking device. MEDIASTINUM: No evidence of adenopathy. VASCULATURE: No aortic aneurysm. Mild atherosclerotic calcification of the aorta and its branches. MUSCULOSKELETAL: No acute osseous abnormalities. Median sternotomy wires. No aggressive osseous lesio n. Scoliotic curvature. SOFT TISSUES/LYMPH NODES: Unremarkable. LOWER NECK: No significant findings. ABDOMEN: ABDOMEN LIVER: Unremarkable GALLBLADDER AND BILE DUCTS: Layering increased densities within the lumen consistent with gallstones are present. No biliary ductal dilatation. PANCREAS: Unremarkable. SPLEEN: Unremarkable. ADRENAL GLANDS: Unremarkable. KIDNEYS AND URETERS: No evidence of hydronephrosis. Prominent bilateral extrarenal pelvises. Nonobstr uctive bilateral renal calculi with largest within the right kidney measuring up to 1 cm. These enhan ce symmetrically. Left renal 1.9 cm cyst. Additional right renal subcentimeter cortical cyst. No calc ulus identified within the ureters. Contrast is demonstrated within both collecting systems on delaye d phase. PELVIS BLADDER: Unremarkable REPRODUCTIVE: Prostate is enlarged in size measuring 6.6 cm in transverse dimension. ABDOMEN & PELVIS STOMACH AND BOWEL: Small hiatal hernia, duodenum is unremarkable. The appendix is within normal limit s. Enteric contrast reaches the mid small bowel. Postsurgical changes with colonic anastomosis within the right mid abdomen. The remaining large bowel is demonstrated within the right and midline abdome n with the small bowel predominantly within the left abdomen. No suspicious soft tissue identified at the anastomotic site. No evidence of bowel obstruction. PERITONEUM: No evidence of pneumoperitoneum or free fluid. VASCULATURE: Moderate atherosclerotic calcifications are present throughout the abdominal aorta and i ts branches. No abdominal aortic aneurysm. MUSCULOSKELETAL: No acute osseous abnormalities. No aggressive osseous lesion. Scoliotic curvature. M ultilevel degenerative disease most pronounced at L5-S1. LYMPH NODES: No evidence for lymphadenopathy. SOFT TISSUE/ABDOMINAL WALL: Unremarkable IMPRESSION: 1. Postsurgical changes of the colon without evidence for recurrence or metastatic disease. 2. Nonobstructive bilateral renal calculi. 3. Prostatomegaly. Correlate with PSA values. 4. Cholelithiasis. 5. Mild COPD changes. [facility], , 06/09/2024 2:38 PM
== END | disposition home or self-care (01) ==
LOC: RADCTMAIN 10:19
PROVIDERS: ATTEND Internal Medicine Hematology & Oncology
DX: C18.7 Malignant neoplasm of sigmoid colon (principal); J44.9 Chronic obstructive pulmonary disease, unspecified; N40.0 Benign prostatic hyperplasia without lower urinary tract symptoms; N20.0 Calculus of kidney; K80.20 Calculus of gallbladder without cholecystitis without obstruction; I10 Essential (primary) hypertension; E78.5 Hyperlipidemia, unspecified; I25.2 Old myocardial infarction
CPT/HCPCS: 82565; 84520; 71260; 74177; 36415; Q9967

== ENCOUNTER 2024-07-12 01:13 | Emergency (ER) | payer MEDICARE ==
[2024-07-12 01:39] LABS: Anisocytosis Slight; Basophils # (A) 0.1 k/uL (0-0.2); Basophils % (A) 1 %; Eosinophils # (A) 0.2 k/uL (0-0.7); Eosinophils % (A) 2 %; HCT 25.6 % (39.0-53.0); HGB 7.7 gm/dL (13.0-17.5); Hypochromasia Marked; Lymphocytes % (A) 24 %; MCH 23.6 pg (25.0-35.0); MCV 78.6 fL (80.0-100.0); Mean Platelet Volume 9.9; Microcytosis Slight; Monocytes # (A) 0.7 k/uL (0-1.0); Monocytes % (A) 8 %; Neutrophils # (A) 5.2 k/uL (1.3-7.7); Neutrophils % (A) 61 %; Platelet Count 288 k/uL (150-450); RBC 3.26 m/uL (4.30-5.90); RDW 17.5 % (11.5-15.5); WBC 8.5 k/uL (3.8-10.6)
[2024-07-12 01:52] LABS: ALT 14 U/L (4-49); AST 30 U/L (17-59); African American GFR (CKD) 66 (>60 ml/min/1.73 sqM); Albumin 3.7 g/dL (3.5-5.0); Alkaline Phosphatase 80 U/L (38-126); Anion Gap 10 mmol/L; Blood Urea Nitrogen 34 mg/dL (9-20); Calcium 8.3 mg/dL (8.4-10.2); Carbon Dioxide 25 mmol/L (22-30); Chloride 99 mmol/L (98-107); Glucose 184 mg/dL (74-99); Non-African American GFR(CKD) 57 (>60 ml/min/1.73 sqM); Potassium 3.8 mmol/L (3.5-5.1); Sodium 134 mmol/L (137-145); Total Bilirubin 0.5 mg/dL (0.2-1.3)
[2024-07-12 02:01] LABS: INR 1.2 (<1.2)
--- NOTE | 2024-07-12 02:47 | ED ---
GI Bleed HPI - General Chief complaint: Dizziness Stated complaint: Blood in stool Time Seen by Provider: 07/12/24 02:24 Source: patient Mode of arrival: ambulatory Limitations: no limitations - History of Present Illness Initial comments: This patient is a 78-year-old man with history of previous colon cancer, taking Eliquis, who presents with complaint of having bloody bowel movements and feeling dizzy. He states that he started the past blood with every bowel movement approximately 3 days ago. He states that he had about eight bowel movements with a moderate amount of dark red blood. The following day for 4 bowel movements with dark blood. He then started feeling dizzy when he stood up. Patient denies symptoms when he is seated at rest. He is not having other symptoms of anemia, no chest pain, dyspnea, diaphoresis, palpitations, syncope. MD complaint: gross hematochezia Onset/Timin -: days(s) Severity scale (1-10): 0 Quality: painless Consistency: constant Improves with: none Worsens with: none Context: blood thinners Associated Symptoms: other Treatments Prior to Arrival: none - Related Data Home Medications Medication Instructions Recorded Confirmed Insulin Aspart [NovoLOG] See Protocol SQ AC-TID 01/08/19 04/20/24 Ascorbic Acid [Vitamin C] 500 mg PO DAILY 04/14/24 04/20/24 Aspirin [Adult Low Dose Aspirin EC] 81 mg PO DAILY 04/14/24 04/20/24 Bumetanide [BUMEX] 2 mg PO QAM 04/14/24 04/20/24 Cbd Oil 1 drop SUBLINGUAL BID 04/14/24 04/20/24 Docusate [Colace] 100 mg PO QAM 04/14/24 04/20/24 Dulaglutide [Trulicity] 0.75 mg SQ WEEKLY 04/14/24 04/20/24 Empagliflozin [Jardiance] 10 mg PO QAM 04/14/24 04/20/24 Ferrous Sulfate [Iron (65 MG 325 mg PO BID 04/14/24 04/20/24 Elemental)] Fluticasone Propionate [Flonase 1 spray EA NOSTRIL BID 04/14/24 04/20/24 Allergy Relief] Insulin Glargine,Hum.rec.anlog 50 units SQ BID 04/14/24 04/20/24 [Lantus Solostar Pen] Metoprolol Succinate (ER) [Toprol 25 mg PO QAM 04/14/24 04/20/24 XL] Pantoprazole [Protonix] 40 mg PO QAM 04/14/24 04/20/24 Rivaroxaban [Xarelto] 20 mg PO DAILY 04/14/24 04/20/24 Rosuvastatin [Crestor] 20 mg PO QAM 04/14/24 04/20/24 Sacubitril/Valsartan [Entresto 24 1 tab PO QAM 04/14/24 04/20/24 mg-26 mg Tablet] Thiamine [Vitamin B-1] 100 mg PO QAM 04/14/24 04/20/24 Previous Rx's Medication Instructions Recorded HYDROcodone/APAP 5-325MG [[place] 1 tab PO Q4HR PRN #42 tab 04/22/24 5-325] Cyclobenzaprine [Flexeril] 5 mg PO TID PRN 5 Days #15 tablet 04/23/24 cefaDROXiL [Duricef] 500 mg PO Q12HR 5 Days #10 cap 04/23/24 Allergies Allergy/AdvReac Type Severity Reaction Status Date / Time No Known Allergies Allergy Verified 07/12/24 01:18 Review of Systems ROS Statement: Those systems with pertinent positive or pertinent negative responses have been documented in the HPI. ROS Other: All systems not noted in ROS Statement are negative. Constitutional: Denies: fever, chills, weakness Eyes: Denies: vision change Respiratory: Denies: cough, dyspnea Cardiovascular: Denies: chest pain, palpitations, dyspnea on exertion, orthopnea, edema Gastrointestinal: Reports: hematochezia. Denies: abdominal pain, nausea, vomiting, hematemesis, melena Genitourinary: Denies: dysuria, hematuria Musculoskeletal: Denies: back pain Skin: Denies: rash Neurological: Denies: headache, weakness, numbness Hematological/Lymphatic: Reports: easy bleeding Past Medical History Past Medical History: Atrial Fibrillation, Coronary Artery Disease (CAD), Chest Pain / Angina, Heart Failure, Diabetes Mellitus, Hearing Disorder / Deafness, Hyperlipidemia, Hypertension, Myocardial Infarction ([place]), Osteoarthritis ([place]) Additional Past Medical History / Comment(s): Type II DM, cardiomyopathy, paroxysmal atrial fibrillation, anemia, hard of hearing, colon cancer 5/24 - bowel resection Last Myocardial Infarction Date:: 2007 History of Any Multi-Drug Resistant Organisms: None Reported Past Surgical History: Coronary Bypass/CABG, Heart Catheterization With Stent, Pacemaker Additional Past Surgical History / Comment(s): CABG x 4 vessels, colon resection 12/26 in [place] Additional Past Anesthesia/Blood Transfusion Reaction / Comment(s): Pt. states he was itchy for 2 mos. after colon resection in 12/2023. Date of Last Stent Placement:: 2007 Type of Cardiac Device: Biventricular Pacemaker, AICD Device Placement Date:: 10/2022 Past Psychological History: No Psychological Hx Reported Smoking Status: Former smoker Past Alcohol Use History: Daily Past Drug Use History: None Reported - Past Family History Daughter(s) Family Medical History: Cancer Additional Family Medical History / Comment(s): breast cancer Mother Family Medical History: Cancer Additional Family Medical History / Comment(s): breast Brother(s) Family Medical History: Coronary Artery Disease (CAD) Additional Family Medical History / Comment(s): CABG General Exam Limitations: no limitations General appearance: alert, in no apparent distress Head exam: Present: atraumatic, normocephalic Eye exam: Present: normal appearance. Absent: scleral icterus, conjunctival injection ENT exam: Present: normal oropharynx Neck exam: Present: normal inspection Respiratory exam: Present: normal lung sounds bilaterally. Absent: respiratory distress, wheezes, rales, rhonchi, stridor, accessory muscle use Cardiovascular Exam: Present: regular rate, normal rhythm, normal heart sounds. Absent: systolic murmur, diastolic murmur, rubs, gallop GI/Abdominal exam: Present: soft. Absent: distended, tenderness, guarding, rebound, rigid, mass Extremities exam: Present: normal inspection, normal capillary refill. Absent: pedal edema, calf tenderness Back exam: Present: normal inspection. Absent: CVA tenderness (R), CVA tenderness (L) Neurological exam: Present: alert Skin exam: Present: warm, dry, intact, normal color. Absent: rash Course Vital Signs 07/12/24 07/12/24 07/12/24 01:14 02:32 02:57 Temperature 97.9 F 98.5 F Pulse Rate 91 70 69 Respiratory 18 16 16 Rate Blood Pressure 112/59 116/68 120/62 O2 Sat by Pulse 100 100 98 Oximetry 07/12/24 03:28 Temperature 98.1 F Pulse Rate 76 Respiratory 16 Rate Blood Pressure 109/64 O2 Sat by Pulse 96 Oximetry Medical Decision Making - Medical Decision Making Patient is a 78-year-old man with history of previous colon cancer status post resection. He presents with painless dark red rectal bleeding. Patient is found to be anemic with hemoglobin 7.5. There is no gastroenterology coverage, discussed with patient who is amenable to transfer to [facility] to have further evaluation and treatment. Was pt. sent in by a medical professional or institution (, PA, FITTING ROOM INSPECTOR, urgent care, hospital, or half-way...) When possible be specific @ -[No] Did you speak to anyone other than the patient for history (EMS, parent, family, police, friend...)? What history was obtained from this source @ -[No] Did you review nursing and triage notes (agree or disagree)? Why? @ -[I reviewed and agree with nursing and triage notes] Were old charts reviewed (outside hosp., previous admission, EMS record, old EKG, old radiological studies, urgent care reports/EKG's, half-way records)? Report findings @ -[No old charts were reviewed] Differential Diagnosis (chest pain, altered mental status, abdominal pain women, abdominal pain men, vaginal bleeding, weakness, fever, dyspnea, syncope, headache, dizziness, GI bleed, back pain, seizure, CVA, palpatations, mental health, musculoskeletal)? @ -Differential GI Bleed: Esophageal varices, aortoenteric fistula, Mandy-Kline, gastritis, peptic ulcer disease, diverticulosis, inflammatory bowel disease, hemorrhoids, fissure, colitis, malignancy, Meckel's diverticulum, this is not meant to be an all-in clusive list. EKG interpreted by me (3pts min.). @ -[I interpreted as above] X-rays interpreted by me (1pt min.). @ -[None done] CT interpreted by me (1pt min.). @ -[None done] U/S interpreted by me (1pt. min.). @ -[None done] What testing was considered but not performed or refused? (CT, X-rays, U/S, labs)? Why? @ -[None] What meds were considered but not given or refused? Why? @ -[None] Did you discuss the management of the patient with other professionals (professionals i.e. , PA, FITTING ROOM INSPECTOR, lab, RT, psych nurse, director social service, scientific helper, teacher, national insurance officer, mental health case manager)? Give summary @ -[Case discussed with the transfer team at [facility] and they will accept for transfer Was smoking cessation discussed for >3mins.? @ -[ Was critical care preformed (if so, how long)? @ -[Yes, 30 minutes Were there social determinants of health that impacted care today? How? (Homelessness, low income, unemployed, alcoholism, drug addiction, transportation, low edu. Level, literacy, decrease access to med. care, usp, rehab)? @ -[No] Was there de-escalation of care discussed even if they declined (Discuss DNR or withdrawal of care, Hospice)? DNR status @ -[No] What co-morbidities impacted this encounter? (DM, HTN, Smoking, COPD, CAD, Cancer, CVA, ARF, Chemo, Hep., AIDS, mental health diagnosis, sleep apnea, morbid obesity)? @ -[None] Was patient admitted / discharged? Hospital course, mention meds given and route, prescriptions, significant lab abnormalities, going to OR and other pertinent info. @ -[Patient is 78-year-old man here with GI bleeding and anemia. The patient given medication and transfer arranged to facility with gastroenterology Undiagnosed new problem with uncertain prognosis? @ -[No] Drug Therapy requiring intensive monitoring for toxicity (Heparin, Nitro, Insulin, Cardizem)? @ -[No] Were any procedures done? @ -[No] Diagnosis/symptom? @ -[Acute GI bleeding Anemia Acute, or Chronic, or Acute on Chronic? @ -[Acute Uncomplicated (without systemic symptoms) or Complicated (systemic symptoms)? @ -[Complicated by anemia Side effects of treatment? @ -[No] Exacerbation, Progression, or Severe Exacerbation? @ -[No] Poses a threat to life or bodily function? How? (Chest pain, [place], [place], pneumonia, PE, COPD, DKA, ARF, appy, cholecystitis, CVA, Diverticulitis, Homicidal, Suicidal, threat to staff... and all critical care pts) @ -[Yes there is risk of further bleeding and exsanguination - Lab Data Result diagrams: 07/12/24 01:20 07/12/24 01:20 Lab Results 07/12/24 07/12/24 07/12/24 Range/Units 01:20 01:20 01:20 WBC 8.5 (3.8-10.6) k/uL RBC 3.26 L (4.30-5.90) m/uL Hgb 7.7 L (13.0-17.5) gm/dL Hct 25.6 L (39.0-53.0) % MCV 78.6 L (80.0-100.0) fL MCH 23.6 L (25.0-35.0) pg MCHC 30.0 L (31.0-37.0) g/dL RDW 17.5 H (11.5-15.5) % Plt Count 288 (150-450) k/uL MPV 9.9 Neutrophils % 61 % Lymphocytes % 24 % Monocytes % 8 % Eosinophils % 2 % Basophils % 1 % Neutrophils # 5.2 (1.3-7.7) k/uL Lymphocytes # 2.0 (1.0-4.8) k/uL Monocytes # 0.7 (0-1.0) k/uL Eosinophils # 0.2 (0-0.7) k/uL Basophils # 0.1 (0-0.2) k/uL Hypochromasia Marked Anisocytosis Slight Microcytosis Slight PT 13.0 H (10.0-12.5) sec INR 1.2 H (<1.2) Sodium 134 L (137-145) mmol/L Potassium 3.8 (3.5-5.1) mmol/L Chloride 99 (98-107) mmol/L Carbon Dioxide 25 (22-30) mmol/L Anion Gap 10 mmol/L BUN 34 H (9-20) mg/dL Creatinine 1.21 (0.66-1.25) mg/dL Est GFR (CKD-EPI)AfAm 66 (>60 ml/min/1.73 sqM) Est GFR (CKD-EPI)NonAf 57 (>60 ml/min/1.73 sqM) Glucose 184 H (74-99) mg/dL Calcium 8.3 L (8.4-10.2) mg/dL Total Bilirubin 0.5 (0.2-1.3) mg/dL AST 30 (17-59) U/L ALT 14 (4-49) U/L Alkaline Phosphatase 80 (38-126) U/L Troponin I (0.000-0.034) ng/mL Total Protein 7.0 (6.3-8.2) g/dL Albumin 3.7 (3.5-5.0) g/dL 07/12/24 Range/Units 01:20 WBC (3.8-10.6) k/uL RBC (4.30-5.90) m/uL Hgb (13.0-17.5) gm/dL Hct (39.0-53.0) % MCV (80.0-100.0) fL MCH (25.0-35.0) pg MCHC (31.0-37.0) g/dL RDW (11.5-15.5) % Plt Count (150-450) k/uL MPV Neutrophils % % Lymphocytes % % Monocytes % % Eosinophils % % Basophils % % Neutrophils # (1.3-7.7) k/uL Lymphocytes # (1.0-4.8) k/uL Monocytes # (0-1.0) k/uL Eosinophils # (0-0.7) k/uL Basophils # (0-0.2) k/uL Hypochromasia Anisocytosis Microcytosis PT (10.0-12.5) sec INR (<1.2) Sodium (137-145) mmol/L Potassium (3.5-5.1) mmol/L Chloride (98-107) mmol/L Carbon Dioxide (22-30) mmol/L Anion Gap mmol/L BUN (9-20) mg/dL Creatinine (0.66-1.25) mg/dL Est GFR (CKD-EPI)AfAm (>60 ml/min/1.73 sqM) Est GFR (CKD-EPI)NonAf (>60 ml/min/1.73 sqM) Glucose (74-99) mg/dL Calcium (8.4-10.2) mg/dL Total Bilirubin (0.2-1.3) mg/dL AST (17-59) U/L ALT (4-49) U/L Alkaline Phosphatase (38-126) U/L Troponin I <0.012 (0.000-0.034) ng/mL Total Protein (6.3-8.2) g/dL Albumin (3.5-5.0) g/dL - EKG Data -: EKG Interpreted by Me Rate: normal (Rate 84 bpm) Interpretation: other (There is a paced rhythm) Disposition Clinical Impression: GI bleeding, Anemia Disposition: OTHER INSTITUTION NOT DEFINED Condition: Serious Is patient prescribed a controlled substance at d/c from ED?: No Referrals: Fabiano Dhillon MD [Primary Care Provider] - 1-2 days - Out of Hospital Transfer - Req. Specs Out of Hospital Transfer - Requested Specifics: Other Emergency Center ([facility])
[2024-07-12 02:48] VITALS: RESP 16
[2024-07-12] MEDS: PANTOPRAZOLE 40 MG/10 ML VIAL IVP STA (02:54)
[2024-07-12] MEDS: TRANEXAMIC 1,000 MG/100ML-NACL 1,000 MG in SALINE 1 100ML.BAG IVPB ONE (02:55)
[2024-07-12 03:30] VITALS: BP 109/64; PULSE 76; TEMP 98.1
== END 2024-07-12 03:38 | disposition other institution (70) ==
LOC: EC 01:13
DX: K92.2 Gastrointestinal hemorrhage, unspecified (principal); D64.9 Anemia, unspecified; Z87.891 Personal history of nicotine dependence
CPT/HCPCS: 36415; 93005; 80053; 84484; 85025; 85610; 99291; 96365; 96375; J2470

== ENCOUNTER → 2025-01-05 | Outpatient (CLI) | payer MEDICARE ==
[2025-01-05 09:24] LABS: African American GFR (CKD) 89 (>60 ml/min/1.73 sqM); Blood Urea Nitrogen 28 mg/dL (9-20); Non-African American GFR(CKD) 77 (>60 ml/min/1.73 sqM)
--- NOTE | 2025-01-08 23:27 | CT ---
EXAMINATION TYPE: CT ChestAbdPelvis w con DATE OF EXAM: 01/05/2025 10:39 AM COMPARISON: None. CLINICAL INDICATION: Male, 79 years old with history of C18.7 MALIGNANT NEOPLASM OF SIGMOID COLON, ma lignant neoplasm of sigmoid colon TECHNIQUE: CT ChestAbdPelvis w con , with sagittal coronal reformats. If MIP/3-D images were created, there are created on a separate workstation. Contrast used:100 ml mL of Isovue 300 with IV Contrast, (none if empty) Oral contrast used: with Oral Contrast (none if empty) CT DLP: 2071 mGycm, Automated exposure control for dose reduction was used. FINDINGS: CT CHEST: Portion of the thyroid visualized is normal. No suspicious lung nodules or focal infiltrates are present. No enlarged mediastinal or hilar adenopathy is evident. Moderate coronary artery calcifications pres ent. The ascending aorta diameter at the level of the main pulmonary artery is 3.9 cm. The main pulmonary artery diameter at the bifurcation is 3.[address] ABDOMEN: Liver: Normal Spleen: Normal Pancreas: Normal Adrenal glands: The adrenal glands are normal. Gallbladder: Cholelithiasis is present. Kidneys: No masses are evident. No hydronephrosis is present. There is a cortical renal cyst on t he superior medial left kidney measuring 1.3 cm there are several punctate calcifications within the left kidney without obstruction. The largest in the medial midportion measures 0.5 cm. Several calci fications are within the right kidney without evidence of obstruction. The largest is in the mid infe rior pole measuring 1.0 cm there are additional calcifications at the inferior pole measuring 0.9 cm and in the posterior mid upper pole measuring 0.9 cm. Aorta: Vascular calcification is within the aorta. Inferior vena cava: Normal. CT PELVIS: Loops of bowel within the abdomen and pelvis are normal. Prior descending colon hemicolectomy. There are loops of bowel which are incompletely distended or lack oral contrast limiting their evaluation. Appendix: Not identified. Urinary bladder: Diffuse urinary bladder wall thickening is present. This can be related to outlet ob struction or neurogenic bladder. Cystitis is considered within the differential. Genitourinary structures: There is marked prominence of the prostate. Osseous structures: No suspicious lytic or sclerotic lesions. Facet degenerative changes within lumba r spine IMPRESSION: 1. Bilateral nonobstructing renal stones. 2. Marked prominence of the prostate. 3. Diffuse mild wall thickening of the urinary bladder. 4. Cholelithiasis 5. No suspicious changes for recurrent or metastatic colon cancer. [facility], , 01/08/2025 11:24 PM
== END | disposition home or self-care (01) ==
LOC: RADCTMAIN 08:48
PROVIDERS: ATTEND Internal Medicine Hematology & Oncology
DX: C18.7 Malignant neoplasm of sigmoid colon (principal); N20.0 Calculus of kidney; K80.20 Calculus of gallbladder without cholecystitis without obstruction; I10 Essential (primary) hypertension; E78.5 Hyperlipidemia, unspecified; I25.2 Old myocardial infarction; N32.89 Other specified disorders of bladder; N42.89 Other specified disorders of prostate
CPT/HCPCS: 82565; 84520; 71260; 74177; 36415; Q9967